=== PATIENT | male | born 1960 | race Caucasian/White ===

== ENCOUNTER 2023-06-14 13:49 | Outpatient (AMB) | payer MEDICARE, MEDICAID, SELFPAY ==
[2023-06-14 13:50] VITALS: BMI 35.1
--- NOTE | 2023-06-14 13:50 | HO.NEPHOV ---
HPI HPI Comments History of Present Illness Details 62 yr old man with HTN and obesity with mild CKD PFSH Social History (Updated 06/14/23 @ 13:52 by Radha Mendoza) Alcohol intake: former Patient Tobacco Use Status: Former Tobacco user Vital Signs 06/14/23 13:50 Height 5 ft 9 in Weight 238 lb BMI 35.1 Physical Exam Vital Signs: BMI result Body Mass Index 35.1 Assessment & Plan Assessment & Plan (1) CKD (chronic kidney disease): Code(s): N18.9 - Chronic kidney disease, unspecified Plan: Mild CKD Creatinine stable Avoid nephrotoxins Telehealth Telehealth Patient Identification confirmed using: Name, : Yes Telehealth method: voice only Patient verbally consented to treatment: Yes Patient verbally consented to billing insurance company: Yes Minutes spent on Phone/Video with Pt.: 16 Coding Level of Care Code Tele New Pt Level 3 (20153) Diagnoses CKD (chronic kidney disease) N18.9 Results Reviewed Results Reviewed: cr 1.2 Nephrology Results: No Data to Display
== END 2023-06-14 15:28 | disposition home or self-care (01) ==
PROVIDERS: Visit Provider Internal Medicine Hypertension Specialist
DX: N18.2 Chronic kidney disease, stage 2 (mild) (principal)
CPT/HCPCS: 99442

== ENCOUNTER → 2023-06-14 13:50 | Outpatient (BNVA) | payer MEDICARE, MEDICAID, SELFPAY | PROVIDERS: Visit Provider Internal Medicine Hypertension Specialist ==

== ENCOUNTER 2023-12-10 15:01 | Outpatient (AMB) | payer MEDICARE, MEDICAID, SELFPAY ==
[2023-12-10 14:58] VITALS: BP 132/72; PULSE 88; O2SAT 97; BMI 36.0
--- NOTE | 2023-12-10 14:58 | HO.NEPHOV_ITS ---
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 Accompanied by: Self / Same As Patient Allergies No Known Allergies Allergy (Verified 12/10/23 15:07) Medication List - Last Reconciled 12/10/23 by Adrian Schneider MD albuterol sulfate 90 mcg/actuation (Ventolin HFA) 2 puffs inhalation Q4-6H PRN allopurinol 100 mg PO DAILY aspirin 81 mg PO DAILY krpjwthfse-kxzuooslhv-tpb-cod [id number] mg caps PO clonazepam 1 mg PO BID PRN epinephrine IM famotidine 20 mg PO BID fluticasone furoate-vilanterol 200-25 mcg/dose (Breo Ellipta) 1 ea inhalation DAILY fluticasone propionate 50 mcg/actuation sprays intranasal hydrochlorothiazide 12.5 mg PO DAILY insulin lispro (Humalog KwikPen (U-100) Insulin) subcut ipratropium-albuterol 0.5 mg-3 mg(2.5 mg base)/3 mL mL inhalation mepolizumab (Nucala) mg subcut metaxalone 800 mg PO TID metformin 1,000 mg PO BID montelukast 10 mg PO DAILY omeprazole 20 mg PO BID ondansetron HCl 4 mg PO Q8H oxycodone 5 mg PO TID PRN prazosin mg PO quetiapine ER 200 mg PO BEDTIME rosuvastatin (Crestor) 40 mg PO DAILY sertraline 100 mg PO BID tamsulosin 0.8 mg PO DAILY tiotropium bromide 1.25 mcg/actuation (Spiriva Respimat) 2 puffs inhalation DAILY valsartan 160 mg PO DAILY zolpidem 10 mg PO BEDTIME PRN HPI Comments Details: 62 yr old man with HTN and obesity with mild CKD PFSH Social History Alcohol intake: former Patient Tobacco Use Status: Former Tobacco user Physical Exam Vital Signs: Last Vital Signs Pulse 88 12/10/23 14:58 BP 132/72 12/10/23 14:58 Pulse Ox 97 12/10/23 14:58 Oxygen Delivery Method Room Air 12/10/23 14:58 BMI result Body Mass Index 36.0 Results Reviewed Nephrology Results: No Data to Display Assessment & Plan Assessment & Plan (1) CKD (chronic kidney disease): Code(s): N18.9 - Chronic kidney disease, unspecified Category: Medical Plan: Mild CKD Creatinine stable Avoid nephrotoxins Orders: Orders Parathyroid Hormone Intact 1 Year N18.9 - Chronic kidney disease, unspecified renal BI 12/10/23 N18.9 - Chronic kidney disease, unspecified Basic Metabolic Panel 1 Year N18.9 - Chronic kidney disease, unspecified Vitamin D 25-OH (D2 and D3) 1 Year N18.9 - Chronic kidney disease, unspecified Complete Blood Count Auto Diff 1 Year N18.9 - Chronic kidney disease, unspecified Coding Level of Care Code Est Pt Level 4 (27018) Diagnoses CKD (chronic kidney disease) N18.9
== END 2023-12-10 15:21 | disposition home or self-care (01) ==
PROVIDERS: Visit Provider Internal Medicine Hypertension Specialist
DX: N18.2 Chronic kidney disease, stage 2 (mild) (principal)
CPT/HCPCS: 99213

== ENCOUNTER → 2023-12-10 15:01 | Outpatient (BNVA) | payer MEDICARE, MEDICAID, SELFPAY | PROVIDERS: Visit Provider Internal Medicine Hypertension Specialist | DX: I12.9 Hypertensive chronic kidney disease with stage 1 through stage 4 chronic kidney disease, or unspecified chronic kidney disease (principal); E66.9 Obesity, unspecified; N18.9 Chronic kidney disease, unspecified; Z68.36 Body mass index [BMI] 36.0-36.9, adult | CPT/HCPCS: 99212 ==

== ENCOUNTER 2024-02-22 14:42 | Outpatient (AMB) | payer MEDICARE, MEDICAID, SELFPAY ==
--- NOTE | 2024-02-22 14:53 | HO.NEPHOV_ITS ---
Vital Signs 02/22/24 15:06 Height 5 ft 9 in Weight 249 lb 8 oz BMI 36.8 BP 210/90 H Blood Pressure Location Lt brachial Position Sitting Pulse 58 Pulse Source Pulse Oximeter Pulse Oximetry (%) 96 Oxygen Delivery Method Room Air Intake Visit Reasons: Dr. Blas request sooner appt. 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 His serum creatinine had gone up to 1.9 on HCTZ. 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 He underwent cardiac catheterization after his serum creatinine improved . 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 His follow up serum creatinine has been stable but his BP control has been quite poor. He is on ARB as well as carvedilol. He denied any chest pain, SOB, edema, PND, orthopnea, NSAID intake. He is unsure about proteinuria. COUNTS INCLUDE 234 BEDS AT [facility] Social History Alcohol intake: former Patient Tobacco Use Status: Former Tobacco user Review of Systems Const All systems reviewed & are unremarkable except as noted in HPI and below Physical Exam Vital Signs: Last Vital Signs Pulse 58 02/22/24 15:06 BP 210/90 H 02/22/24 15:06 Pulse Ox 96 02/22/24 15:06 Oxygen Delivery Method Room Air 02/22/24 15:06 BMI result Body Mass Index 36.8 Const General: comfortable and no acute distress Orientation/consciousness: patient oriented x3 HEENT Head: Yes normocephalic Mouth: Normal oral and palatal mucosa present Eyes EOM: EOMs intact bilaterally Neck Neck: Yes supple Resp Auscultation: clear to auscultation bilaterally Cardio Jugular venous distension: no JVD Rate: regular rate GI Palpation (GI): Soft to palpation Auscultation: normal bowel sounds General: Yes no CVA tenderness Back/Spine/Pelvis Back: no CVA tenderness Skin General skin exam: no rashes or lesions noted Neuro General: patient oriented x3 and moves all extremities Extrem General: Yes no pedal edema Results Reviewed Nephrology Results: Sodium 140 mmol/L (135-145) 02/22/24 Potassium 4.5 mmol/L (3.3-5.1) 02/22/24 Chloride 107 mmol/L (96-108) 02/22/24 Carbon Dioxide 25 mmol/L (22-29) 02/22/24 BUN 14 mg/dL (9-16) 02/22/24 Creatinine 1.26 mg/dL (0.5-1.4) 02/22/24 Urine Creatinine 207.33 mg/dL 02/22/24 Protein/Creatinin Ratio 0.32 (<0.2) H 02/22/24 Assessment & Plan Assessment & Plan (1) CKD (chronic kidney disease) stage 2, GFR 60-89 ml/min: Code(s): N18.2 - Chronic kidney disease, stage 2 (mild) Category: Medical (2) Hypertension: Code(s): I10 - Essential (primary) hypertension Category: Medical Qualifiers: Hypertension type: primary hypertension Qualified Code(s): I10 - Essential (primary) hypertension (3) Diabetic nephropathy: Code(s): E11.21 - Type 2 diabetes mellitus with diabetic nephropathy Category: Medical Qualifiers: Diabetes mellitus type: type 2 Qualified Code(s): E11.21 - Type 2 diabetes mellitus with diabetic nephropathy Plan 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 His BP is uncontrolled. He has diabetic nephropathy. He needs to loose weight and keep his blood sugar at goal. I rechecked blood work after today's visit and found his serum creatinine is close to baseline. I started him on Amlodipine 10 mg daily. I shall maximize his ARB with time and add Jardiance. He avoids NSAID's. His PCP notes and his recent cardiology notes have been requested. Follow up given in a week time Orders: Orders Electrolytes 02/22/24 Roni Blas MD N18.2 - Chronic kidney disease, stage 2 (mild) Blood Urea Nitrogen 02/22/24 Roni Blas MD N18.2 - Chronic kidney disease, stage 2 (mild) Creatinine 02/22/24 Roni Blas MD N18.2 - Chronic kidney disease, stage 2 (mild) Protein Creatinine Ratio, Ur 02/22/24 Roni Blas MD N18.2 - Chronic kidney disease, stage 2 (mild) Medications: New amlodipine 10 mg PO DAILY 30 days 30 tabs 0RF Roni Blas MD On Hold hydrochlorothiazide Hold Comment: Doctor's Order 12.5 mg PO DAILY Meche Shea MA Coding Level of Care Code Est Pt Level 4 (51954) Diagnoses CKD (chronic kidney disease) stage 2, GFR 60-89 ml/min N18.2 Primary hypertension I10 Hypertension type: primary hypertension Diabetic nephropathy associated with type 2 diabetes mellitus E11.21 Diabetes mellitus type: type 2
[2024-02-22 15:06] VITALS: BP 210/90; PULSE 58; O2SAT 96; BMI 36.8
--- OUTSIDE RECORDS SUMMARY | 2024-02-27 10:43 | XMS_ITS | Continuity of Care Document ---
Author Organization [facility] Address [address] [place] [id number]- Care Team Providers Care Television Antenna Installer Name Role Phone Not on Staff, PCP Primary Care Physician Unavail able Encounter [facility] Date(s): 01/18/24 - 02/17/24 [facility] [address] [place] [id number] Encounter Type: Triage Allergies, Adverse Reactions, Alerts Substance Criticality Severity Reaction Reaction Severity Status predniSONE Active Bee Stings swelling trouble breathing Active Immunizations Given and Recorded Vaccine Date Status Refusal Reason SARS-CoV-2 (COVID-19) mRNA-1273 vaccine 1 11/02/20 Recorded SARS-CoV-2 (COVID-19) mRNA-1273 vaccine 08/21/20 R ecorded SARS-CoV-2 (COVID-19) mRNA-1273 vaccine 07/24/20 R ecorded Influenza Virus Vaccine (oldterm) 2 11/02/20 Recor ded Influenza Virus Vaccine (oldterm) 12/31/17 Recorde d influenza virus vaccine, inactivated 3 02/12/19 Gi dominick influenza virus vaccine, inactivated 4 11/07/17 Gi dominick influenza virus vaccine, inactivated 5 05/07/17 Gi dominick influenza virus vaccine, inactivated 6 01/01/15 Gi dominick influenza virus vaccine, inactivated 01/29/13 Give n Zostavax (oldterm) 7 06/08/17 Given Fluvirin (oldterm) 8 12/03/15 Given tetanus/diphtheria/pertussis, acel(Tdap) 02/01/15 Given Pneumovax 23 (oldterm) 9 12/25/13 Recorded Fluzone (oldterm) 10 12/25/13 Recorded Influenza Vaccine (oldterm) 11 01/12/12 Given 1Result Comment: Dewayne received the 3rd booster Moderna Vaccine at [facility] 2Result Comment: Tj in [place] administered the Influenza vaccine 3Result Comment: [facility] [id number] 4Admin Note: Patient states he received flu vaccine from [facility] 5Result Comment: [id number] 6Admin Note: [facility] 7Admin Note: [facility] 8Admin Note: 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 #[id number], DISPENSE AMOUNT DECREASED PER PT REQUEST, 1 capsule By Mouth Daily,PRN:Pain , Moderate,Instr:DISPENSE AMOUNT DECREASED PER PT REQUEST; BANDOLEER PACKER CHECKED,The Maximum Daily Dose is 1 capsule, 175.9, cm, 11/10/20 10:49:00 EDT, Height, 98.5, kg, 11/19/19 13:59:00 EDT, Dry Weight, 1, capsule Start Date: 12/09/20 Status: Ordered Quantity: 18.0 Unit: capsule Repeat number: 1 Albuterol (Eqv-Ventolin HFA) 90 mcg/inh inhalation aerosol 2 puffs, Inhalation, Every 6 hours, j44.9, # 3 each, 3 Refills, Maintenance, 12/12/23 11:53:00 AM EDT, [facility]/pharmacy #[id number], Partial fill upon patient request if the prescription is for a schedule II opioid drug., 2 puffs Inhalation Every 6 hours,Instr:j44.9, 179, cm, 08/14/23 10:37:00 EDT, Height, 108.7, kg, 08/14/23 10:37:00 EDT, Dry Weight Start Date: 12/12/23 Status: Ordered Quantity: 3.0 Unit: each Repeat number: 4 albuterol-ipratropium 3 mg-0.5 mg/3 ml inhalation solution 3 mL, Inhalation, 4 times a day, j45.40, # 360 mL, 3 Refills, Maintenance, 10/23/22 2:16:00 PM EDT, Solution, [facility]/pharmacy #[id number], 3 mL Inhalation 4 times a day,Instr:j45.40, 176, cm, 09/22/22 11:27:00 EDT, Height, 104.5, kg, 07/03/22 13:29:00 EDT, Dry Weight Start Date: 10/23/22 Status: Ordered Quantity: 360.0 Unit: mL Repeat number: 4 allopurinol 100 mg oral tablet 1, tablet, By Mouth, Daily, # 90 tablet, Refills 1, Tot. Refills 1, Maintenance, 10/05/22 5:49:00 PMEDT, Route to Pharmacy Electronically, [facility]/pharmacy #[id number], 176, cm, 09/22/22 11:27:00 EDT, Height, 104.5, kg, 07/03/22 13:29:00 EDT, Dry Weight Start Date: 10/05/22 Status: Ordered Quantity: 90.0 Unit: tablet Repeat number: 2 Aspir 81 = 81 mg, By Mouth, Daily, 0 Refills, Maintenance, 07/17/11 2:28:35 PM EDT Start Date: 07/17/11 Status: Ordered Repeat number: 1 Breo Ellipta 200 mcg-25 mcg/inh inhalation powder 1 puffs, Inhalation, Daily, # 3 each, 0 Refills, Maintenance, 12/12/23 10:50:00 AM EDT, [facility]/pharmacy#[id number], 1 puffs Inhalation Daily, 179, cm, 08/14/23 10:37:00 EDT, Height, 108.7, kg, 08/14/23 10:37:00 EDT, Dry Weight Start Date: 12/12/23 Status: Ordered Quantity: 3.0 Unit: each Repeat number: 1 clonazePAM 1 mg oral tablet 1 tablet = 1 mg, By Mouth, 2 times a day, Fill when it's due, # 180 tablet, 1 Refills, Maintenance,09/19/23 7:56:00 AM EDT, Tablet, [facility]/pharmacy #[id number], 179, cm, 08/14/23 10:37:00 EDT, Height, 108.7, kg, 08/14/23 10:37:00 EDT, Dry Weight Start Date: 09/19/23 Status: Ordered Quantity: 180.0 Unit: tablet Repeat number: 2 Crestor 40 mg oral tablet 1 tablet = 40 mg, By Mouth, Daily, BRAND NAME ONLY, # 90 tablet, 3 Refills, Maintenance, 02/09/20 10:28:00 AM EST, Tablet, [facility] #[id number], 183, cm, 11/20/19 10:39:00 EDT, Height, 98.5, kg, 11/19/19 13:59:00 EDT, Dry Weight Start Date: 02/09/20 Stop Date: 02/03/21 Status: Ordered Quantity: 90.0 Unit: tablet Repeat number: 4 EpiPen 2-Bronson 0.3 mg injectable kit See Instructions, PRN Anaphylactic Reaction, Intramuscular Once may repeat if necessary, # 2 each, 1 Refills, Soft Stop, 04/27/20 2:34:00 PM EST, [facility] #[id number], 183, cm, 11/20/19 10:39:00EDT, Height, 98.5, kg, 11/19/19 13:59:00 EDT, Dry Weight Start Date: 04/27/20 Status: Ordered Quantity: 2.0 Unit: each Repeat number: 2 Flonase 50 mcg/inh nasal spray 1 sprays, Nares, Both, 2 times a day, in each nostril as directed, j45.40, # 3 each, 1 Refills, Maintenance, 05/15/22 10:55:00 AM EST, [place], [facility] #[id number], J45.909, 1 sprays Nares, Both2 times a day,Instr:in each nostril as directed, j45.40, 177, cm, 11/09/21 13:44:00 EDT, Height, 113.5, kg, 09/26/21 15:48:00 EDT, Dry Weight Start Date: 05/15/22 Status: Ordered Quantity: 3.0 Unit: each Repeat number: 2 fluticasone 50 mcg/inh nasal spray 1 sprays = 50 mcg, Nares, Both, 2 times a day, j45.40, # 3 each, 3 Refills, Maintenance, 05/28/23 11:22:00 AM EDT, [place], [facility]/pharmacy #[id number], Partial fill upon patient request if the prescription is for a schedule II opioid drug., 1 sprays Nares, Both 2 times a day,Instr:j45.40, 178, cm, 04/09/23 13:33:00 EST, Height, 109.6, kg, 04/09/23 13:33:00 EST, Dry Weight Start Date: 05/28/23 Status: Ordered Quantity: 3.0 Unit: each Repeat number: 4 Freestyle Lite Test Strips See Instructions, # 360 each, Refills 4, Tot. Refills 4, Maintenance, Use test strips to check blood glucose up to 4x a day, E11.9, 90 Day supply., 07/20/20 11:28:00 AM EDT, Compound, 175.9, cm, 06/16/20 12:57:00 EDT, Height, 98.5, kg, 11/19/19 13:59:00 EDT, Dry Weight Start Date: 07/20/20 Status: Ordered Quantity: 360.0 Unit: each Repeat number: 5 Humalog Kwik Pen 100 units/mL subcutaneous injection See Instructions, INJECT THREE TIMES DAILY WITH MEALS, MAX DAILY DOSE 40 UNITS, E11.9, # 4 each, 3 Refills, Soft Stop, 07/07/20 6:16:00 AM EDT, [facility] #[id number], 4 pens, 175.9, cm, 06/17/2111:57:00 EDT, Height, 98.5, kg, 11/19/19 13:59:00 EDT, Dry Weight Start Date: 07/07/20 Status: Ordered Quantity: 4.0 Unit: each Repeat number: 4 hydroCHLOROthiazide 12.5 mg oral capsule 1 capsule = 12.5 mg, By Mouth, Daily, 0 Refills, Maintenance, 04/09/23 1:09:00 PM EST, Partial fill upon patient request if the prescription is for a schedule II opioid drug. Start Date: 04/09/23 Status: Ordered Repeat number: 1 metaxalone 800 mg oral tablet 1 tablet = 800 mg, By Mouth, Every 8 hours, PRN Muscle Spasm, # 270 tablet, 1 Refills, Soft Stop, 09/01/20 2:32:00 PM EDT, [facility] #[id number], 175.9, cm, 06/16/20 12:57:00 EDT, Height, 98.5, kg, 11/19/19 13:59:00 EDT, Dry Weight Start Date: 09/01/20 Status: Ordered Quantity: 270.0 Unit: tablet Repeat number: 2 metFORMIN 1000 mg oral tablet 1 tablet = 1,000 mg, By Mouth, 2 times a day, # 180 tablet, 2 Refills, Maintenance, 09/24/20 10:29:00AM EDT, Tablet, [facility] #[id number], 175.9, cm, 06/16/20 12:57:00 EDT, Height, 98.5, kg, 11/19/19 13:59:00 EDT, Dry Weight Start Date: 09/24/20 Stop Date: 06/21/21 Status: Ordered Quantity: 180.0 Unit: tablet Repeat number: 3 montelukast 10 mg oral tablet 10 mg, 1, tablet, By Mouth, Daily, j45.40, # 90 tablet, Refills 0, Tot. Refills 0, Maintenance, 12/12/23 10:48:00 AM EDT, Route to Pharmacy Electronically, [facility]/pharmacy #[id number], Partial fill upon patient request if the prescription is for a schedule II opioid drug., 179, cm, 08/14/23 10:37:00 EDT, Height, 108.7, kg, 08/14/23 10:37:00 EDT, Dry Weight Start Date: 12/12/23 Status: Ordered Quantity: 90.0 Unit: tablet Repeat number: 1 Nucala Prefilled Autoinjector 100 mg/mL subcutaneous solution See Instructions, INJECT 100MG SUBCUTANEOUSLY EVERY 28 DAYS, # 1 mL, 11 Refills, Maintenance, 06/21/23 4:20:00 PM EDT, [facility], 178, cm, 04/09/23 13:33:00 EST, Height, 109.6, kg, 04/09/23 13:33:00 EST, Dry Weight Start Date: 06/21/23 Status: Ordered Quantity: 1.0 Unit: mL Repeat number: 1 Nucala Prefilled Autoinjector 100 mg/mL subcutaneous solution See Instructions, INJECT 100MG SUBCUTANEOUSLY EVERY 28 DAYS, # 1 mL, 2 Refills, Maintenance, 01/09/23 3:34:00 PM EDT, [facility], 176, cm, 12/05/22 7:16:00 EDT, Height, 104.5, kg, 07/03/22 13:29:00 EDT, Dry Weight Start Date: 01/09/23 Status: Ordered Quantity: 1.0 Unit: mL Repeat number: 1 NuLYTELY [employer] oral powder for reconstitution See Instructions, By Mouth. as directed before colonoscopy, # 1 each, 0 Refills, Maintenance, 05/04/23 9:37:00 AM EST, [facility]/pharmacy #[id number], Partial fill upon patient request if the prescription is for a schedule II opioid drug., 178, cm, 04/09/23 13:33:00 EST, Height, 109.6, kg, 04/09/23 13:33:00 EST, Dry Weight Start Date: 05/04/23 Status: Ordered Quantity: 1.0 Unit: each Repeat number: 1 omeprazole 20 mg oral enteric coated capsule 1 capsule, By Mouth, 2 times a day, # 180 capsule, 1 Refills, Maintenance, 10/31/22 11:51:00 AM EDT,[id number], 176, cm, 09/22/22 11:27:00 EDT, Height, 104.5, kg, 07/03/22 13:29:00 EDT, Dry Weight Start Date: 10/31/22 Status: Ordered Quantity: 180.0 Unit: capsule Repeat number: 1 ondansetron 4 mg oral tablet, disintegrating 1 tablet = 4 mg, By Mouth, Every 8 hours, 0 Refills, Maintenance, 10/20/20 3:27:00 PM EDT, Partial fill upon patient request if the prescription is for a schedule II opioid drug. Start Date: 10/20/20 Status: Ordered Repeat number: 1 oxyCODONE 5 mg oral capsule 1 capsule = 5 mg, 3 times a day, 0 Refills, Maintenance, 09/22/22 11:32:00 AM EDT, Partial fill upon patient request if the prescription is for a schedule II opioid drug. Start Date: 09/22/22 Status: Ordered Repeat number: 1 Pen [place], 31 G x 8 mm BD Ultra Fine III See Instructions, # 150 each, Refills 11, Tot. Refills 11, Maintenance, Use to inject insulin up to5x per day. E11.9. 30 day supply., 10/30/19 8:31:00 AM EDT, Supply, 175.4, cm, 08/26/19 10:34:00 EDT, Height, 106.8, kg, 05/30/19 9:41:00 EDT, Dry Weight Start Date: 10/30/19 Status: Ordered Quantity: 150.0 Unit: each Repeat number: 12 prazosin 1 mg oral capsule 3 mg, 3, capsule, By Mouth, Daily at bedtime, # 270 capsule, Refills 1, Tot. Refills 1, Maintenance, 10/09/24 10:55:00 AM EDT, Route to Pharmacy Electronically, [facility]/pharmacy #[id number], Partial fill upon patient request if the prescription is for a schedule II opioid drug., 179, cm, 08/14/23 10:37:00 EDT, Height, 108.7, kg, 08/14/23 10:37:00 EDT, Dry Weight Start Date: 10/09/24 Stop Date: 04/07/25 Status: Ordered Quantity: 270.0 Unit: capsule Repeat number: 2 prazosin 1 mg oral capsule 3 mg, 3, capsule, By Mouth, Daily at bedtime, for 90 days, # 270 capsule, Refills 1, Tot. Refills 1, Hard Stop 04/12/24 10:55:00 AM EST, 10/15/23 10:55:00 AM EDT, Route to Pharmacy Electronically, [facility]/pharmacy #[id number], Partial fill upon patient request if the prescription is for a schedule II opioid drug., 176, cm, 12/05/22 7:16:00 EDT, Height, 104.5, kg, 07/03/22 13:29:00 EDT, Dry Weight Start Date: 10/15/23 Stop Date: 04/12/24 Status: Ordered Quantity: 270.0 Unit: capsule Repeat number: 2 prazosin 1 mg oral capsule 3 mg, 3, capsule, By Mouth, Daily at bedtime, for 90 days, # 270 capsule, Refills 1, Tot. Refills 1, Hard Stop 10/09/24 10:55:00 AM EDT, 04/12/24 10:55:00 AM EST, Route to Pharmacy Electronically, [facility]/pharmacy #[id number], Partial fill upon patient request if the prescription is for a schedule II opioid drug., 178, cm, 04/09/23 13:33:00 EST, Height, 109.6, kg, 04/09/23 13:33:00 EST, Dry Weight Start Date: 04/12/24 Stop Date: 10/09/24 Status: Ordered Quantity: 270.0 Unit: capsule Repeat number: 2 QUEtiapine 200 mg oral tablet, extended release 200 mg, 1, tablet, By Mouth, Daily, # 90 tablet, Refills 1, Tot. Refills 1, Maintenance, 08/11/24 4:47:00 PM EDT, Route to Pharmacy Electronically, [facility]/pharmacy #[id number], 179, cm, 08/14/23 10:37:00 EDT, Height, 108.7, kg, 08/14/23 10:37:00 EDT, Dry Weight Start Date: 08/11/24 Stop Date: 02/07/25 Status: Ordered Quantity: 90.0 Unit: tablet Repeat number: 2 QUEtiapine 200 mg oral tablet, extended release 200 mg, 1, tablet, By Mouth, Daily, for 90 days, # 90 tablet, Refills 1, Tot. Refills 1, Hard Stop 08/11/24 4:47:00 PM EDT, 02/13/24 4:47:00 PM EST, Route to Pharmacy Electronically, [facility]/pharmacy #[id number], 178, cm, 04/09/23 13:33:00 EST, Height, 109.6, kg, 04/09/23 13:33:00 EST, Dry Weight Start Date: 02/13/24 Stop Date: 08/11/24 Status: Ordered Quantity: 90.0 Unit: tablet Repeat number: 2 sertraline 100 mg oral tablet 2 tablet = 200 mg, By Mouth, Daily, # 180 tablet, 1 Refills, Maintenance, 08/11/24 4:47:00 PM EDT, [facility]/pharmacy #[id number], 179, cm, 08/14/23 10:37:00 EDT, Height, 108.7, kg, 08/14/23 10:37:00 EDT, Dry Weight Start Date: 08/11/24 Stop Date: 02/07/25 Status: Ordered Quantity: 180.0 Unit: tablet Repeat number: 2 sertraline 100 mg oral tablet 2 tablet = 200 mg, By Mouth, Daily, for 90 days, # 180 tablet, 1 Refills, Hard Stop 08/11/24 4:47:00PM EDT, 02/13/24 4:47:00 PM EST, [facility]/pharmacy #[id number], 178, cm, 04/09/23 13:33:00 EST, Height, 109.6,kg, 04/09/23 13:33:00 EST, Dry Weight Start Date: 02/13/24 Stop Date: 08/11/24 Status: Ordered Quantity: 180.0 Unit: tablet Repeat number: 2 Spiriva Respimat 1.25 mcg/inh inhalation aerosol See Instructions, INHALE 2 PUFFS BY MOUTH DAILY, j45.40, # 3 each, 0 Refills, Soft Stop, 12/12/23 10:49:00 AM EDT, [facility]/pharmacy #[id number], 179, cm, 08/14/23 10:37:00 EDT, Height, 108.7, kg, 08/14/23 10:37:00 EDT, Dry Weight Start Date: 12/12/23 Status: Ordered Quantity: 3.0 Unit: each Repeat number: 1 tamsulosin 0.4 mg oral capsule 1, capsule, By Mouth, 2 times a day, # 180 capsule, Refills 3, Tot. Refills 3, Maintenance, 10/22/23 10:22:00 AM EDT, Route to Pharmacy Electronically, [facility]/pharmacy #[id number], 179, cm, 08/14/23 10:37:00 EDT, Height, 108.7, kg, 08/14/23 10:37:00 EDT, Dry Weight Start Date: 10/22/23 Status: Ordered Quantity: 180.0 Unit: capsule Repeat number: 4 valsartan 160 mg oral tablet 160 mg, 1, tablet, By Mouth, Daily, # 30 tablet, Refills 0, Maintenance, 05/05/21 8:02:00 AM EST, Partial fill upon patient request if the prescription is for a schedule II opioid drug. Start Date: 05/05/21 Status: Ordered Quantity: 30.0 Unit: tablet Repeat number: 1 Ventolin HFA 108 mcg/inh inhalation aerosol with adapter 2 puffs, Inhalation, 4 times a day, PRN for wheezing, j44.9, # 3 each, 0 Refills, Maintenance, 12/12/23 10:48:00 AM EDT, Aerosol, [facility] #[id number], Partial fill upon patient request if the prescription is for a schedule II opioid drug., 179, cm, 08/14/23 10:37:00 EDT, Height, 108.7, kg, 08/14/23 10 :37:00 EDT, Dry Weight Start Date: 12/12/23 Status: Ordered Quantity: 3.0 Unit: each Repeat number: 1 zolpidem 10 mg oral tablet 1 tablet = 10 mg, By Mouth, Daily at bedtime, Fill when it's due, # 90 tablet, 1 Refills, Maintenance, 09/19/23 7:58:00 AM EDT, [facility] #[id number], 179, cm, 08/14/23 10:37:00 EDT, Height, 108.7, kg, 08/14/23 10:37:00 EDT, Dry Weight Start Date: 09/19/23 Status: Ordered Quantity: 90.0 Unit: tablet Repeat number: 2 Problem List Condition Confirmation Course Effective Dates Status Health Status Informant Anemia Confirmed Active Anxiety Confirmed Active Anxiety and depression Confirmed Active Articular gout 1 Confirmed Active Asthma Confirmed Active Back pain Confirmed Active Carotid artery stenosis Confirmed Active Chondromalacia of patella, right 2 Confirmed 04/18/10 Active Chronic kidney disease, stage 3 Confirmed Active Low vitamin D level Confirmed Active Esophageal reflux (GERD) Confirmed Active Essential hypertension Confirmed Active Hypercholesterolemia Confirmed Active Major depressive disorder Confirmed Active Migraine Confirmed Active 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 Obesity Confirmed Active LUISA on CPAP Confirmed 01/15/12 Active Pad 3 Confirmed Active PTSD - Post-traumatic stress disorder 4 Confirmed Active Severe obesity (BMI 35.0-39.9) with comorbidity Confirmed Active Type 2 diabetes with nephropathy Confirmed Active 1L ankle 2MRI confirmed Abnormal ERIC to L but normal flows by Doppler on both LE 4[facility] at the [facility], [facility] Social History Social History Type Response Smoking Status Former smoker; Tobac co user in household: No entered on: 08/29/16 Sex Sex Representation Male (finding) Patient Care team information Care Team Personnel Name: Jennie SILVERMAN, Adrian Luevano Position: [facility] Renal MD Member Role: Lifetime Consulting Physician Address: [address] [place] [address] [address] [facility] [place] [address]- [place] [employer]: Name: Maria Dolores Luo RN Position: [facility] RN Member Role: Primary Care Nurse Name: Dewayne Kisney MD Position: [facility] Cardiology MD Member Role: Lifetime Consulting Physician Address: [address] [place] [address]- [place] [employer]: Name: Jyothi Rangel RN Position: [facility] RN Member Role: Primary Care Nurse Name: Ed RN, Elba Hutchins Position: [facility] Onco RN Member Role: Primary Care Nurse Name: June Manzano MA Position: [facility] Office Staff Member Role: Primary Care Nurse Name: Not on Staff, PCP Position: [facility] Physician (General Medicine) Member Role: PCP Name: Shell Gray RN Position: [facility] AMB Nurse Member Role: Primary Care Nurse Name: Bharathi Villa MD Position: [facility] Renal MD Member Role: Lifetime Consulting Physician Address: [address] [facility], [place] [address]- [place] [employer]: Name: Wesly Hernandez MD Position: Reference Physician Member Role: Lifetime Consulting Physician Address: [address] [place] [address]- [place] [employer]: Care Team Related Persons Name: HITESH SNIDER Insurance Providers Guarantor name: DEWAYNE SNIDER Health Plan Information #: 1 Payer: MEDICARE PART B OUTPT Member Number: NA Policy Number: NA Group Number: NA Health Plan Information #: 2 Payer: [place] Member Number: NA Policy Number: NA Group Number: NA
--- OUTSIDE RECORDS SUMMARY | 2024-02-27 10:44 | XMS_ITS | Continuity of Care Document ---
Author Organization [facility] Address [address] [place] [address]- Care Team Providers Care Marketing/Sales Person Name Role Phone Not on Staff, PCP Primary Care Physician Unavail able Encounter [facility] Date(s): 01/18/24 - 02/17/24 [facility] [address] [place] [id number]- Encounter Type: Triage Allergies, Adverse Reactions, Alerts [...] received the 3rd booster Moderna Vaccine at [facility] 2Result Comment: [facility] in [place] administered the Influenza vaccine 3Result Comment: 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, # 18 capsule, 0 Refills, Soft Stop, 12/09/20 4:00:00 PM EDT, [facility] #[id number], DISPENSE AMOUNT DECREASED PER PT REQUEST, 1 capsule By Mouth Daily,PRN:Pain , Moderate,Instr:DISPENSE AMOUNT DECREASED PER PT REQUEST; 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,The Maximum Daily Dose is 1 capsule, 175.9, cm, 11/10/20 10:49:00 EDT, Height, 98.5, kg, 11/19/19 13:59:00 EDT, Dry Weight, 1, capsule Start Date: 12/09/20 Status: Ordered Quantity: 18.0 Unit: capsule Repeat number: 1 Albuterol (Eqv-Ventolin HFA) 90 mcg/inh inhalation aerosol 2 puffs, Inhalation, Every 6 hours, j44.9, # 3 each, 3 Refills, Maintenance, 12/12/23 11:53:00 AM EDT, [facility]/pharmacy #[id number], Partial fill upon patient request if the [...] Refills, Maintenance, 10/23/22 2:16:00 PM EDT, Solution, [facility]/pharmacy #[id number], 3 mL Inhalation 4 times a day,Instr:j45.40, 176, cm, 09/22/22 11:27:00 EDT, Height, 104.5, kg, 07/03/22 13:29:00 EDT, Dry Weight Start Date: 10/23/22 Status: Ordered Quantity: 360.0 Unit: mL Repeat number: 4 allopurinol 100 mg oral tablet 1, tablet, By Mouth, Daily, # 90 tablet, Refills 1, Tot. Refills 1, Maintenance, 10/05/22 5:49:00 PMEDT, Route to Pharmacy Electronically, [facility]/pharmacy #[id number], 176, cm, 09/22/22 11:27:00 [...] 0 Refills, Maintenance, 12/12/23 10:50:00 AM EDT, [facility]/pharmacy#0315, 1 puffs Inhalation Daily, 179, cm, 08/14/23 10:37:00 EDT, Height, 108.7, kg, 08/14/23 10:37:00 EDT, Dry Weight Start Date: 12/12/23 Status: Ordered Quantity: 3.0 Unit: each Repeat number: 1 clonazePAM 1 mg oral tablet 1 tablet = 1 mg, By Mouth, 2 times a day, Fill when it's due, # 180 tablet, 1 Refills, Maintenance,09/19/23 7:56:00 AM EDT, Tablet, [facility]/pharmacy #[id number], 179, cm, 08/14/23 10:37:00 EDT, Height, 108.7, kg, 08/14/23 10:37:00 EDT, Dry Weight Start Date: 09/19/23 Status: Ordered Quantity: 180.0 Unit: tablet Repeat number: 2 Crestor 40 mg oral tablet 1 tablet = 40 mg, By Mouth, Daily, BRAND NAME ONLY, # 90 tablet, 3 Refills, Maintenance, 02/09/20 10:28:00 AM EST, Tablet, [facility] #[id number], 183, cm, 11/20/19 10:39:00 EDT, Height, 98.5, kg, 11/19/19 13:59:00 EDT, Dry Weight Start Date: 02/09/20 Stop Date: 02/03/21 Status: Ordered Quantity: 90.0 Unit: tablet Repeat number: 4 EpiPen 2-Bronson 0.3 mg injectable kit See Instructions, PRN Anaphylactic Reaction, Intramuscular Once may repeat if necessary, # 2 each, 1 Refills, Soft Stop, 04/27/20 2:34:00 PM EST, [facility] #[id number], 183, cm, 11/20/19 10:39:00EDT, Height, 98.5, kg, 11/19/19 13:59:00 EDT, Dry Weight Start Date: 04/27/20 Status: Ordered Quantity: 2.0 Unit: each Repeat number: 2 Flonase 50 mcg/inh nasal spray 1 sprays, Nares, Both, 2 times a day, in each nostril as directed, j45.40, # 3 each, 1 Refills, Maintenance, 05/15/22 10:55:00 AM EST, [place], [facility] #[id number], J45.909, 1 sprays Nares, Both2 times a [...] 3 Refills, Maintenance, 05/28/23 11:22:00 AM EDT, [place], [facility]/pharmacy #0315, Partial fill upon patient [...] Refills, Soft Stop, 07/07/20 6:16:00 AM EDT, [facility] #[id number], 4 pens, 175.9, cm, 06/17/2111:57:00 EDT, Height, [...] Refills, Soft Stop, 09/01/20 2:32:00 PM EDT, [facility] #[id number], 175.9, cm, 06/16/20 12:57:00 EDT, Height, 98.5, kg, 11/19/19 13:59:00 EDT, Dry Weight Start Date: 09/01/20 Status: Ordered Quantity: 270.0 Unit: tablet Repeat number: 2 metFORMIN 1000 mg oral tablet 1 tablet = 1,000 mg, By Mouth, 2 times a day, # 180 tablet, 2 Refills, Maintenance, 09/24/20 10:29:00AM EDT, Tablet, [facility] #[id number], 175.9, cm, 06/16/20 12:57:00 EDT, Height, 98.5, kg, 11/19/19 13:59:00 EDT, Dry Weight Start Date: 09/24/20 Stop Date: 06/21/21 Status: Ordered Quantity: 180.0 Unit: tablet Repeat number: 3 montelukast 10 mg oral tablet 10 mg, 1, tablet, By Mouth, Daily, j45.40, # 90 tablet, Refills 0, Tot. Refills 0, Maintenance, 12/12/23 10:48:00 AM EDT, Route to Pharmacy Electronically, [facility]/pharmacy #[id number], Partial fill upon patient request if the [...] 11 Refills, Maintenance, 06/21/23 4:20:00 PM EDT, [facility], 178, cm, 04/09/23 13:33:00 EST, Height, 109.6, kg, 04/09/23 13:33:00 EST, Dry Weight Start Date: 06/21/23 Status: Ordered Quantity: 1.0 Unit: mL Repeat number: 1 Nucala Prefilled Autoinjector 100 mg/mL subcutaneous solution See Instructions, INJECT 100MG SUBCUTANEOUSLY EVERY 28 DAYS, # 1 mL, 2 Refills, Maintenance, 01/09/23 3:34:00 PM EDT, [facility], 176, cm, 12/05/22 7:16:00 EDT, Height, 104.5, kg, 07/03/22 13:29:00 EDT, Dry Weight Start Date: 01/09/23 Status: Ordered Quantity: 1.0 Unit: mL Repeat number: 1 NuLYTELY [place] oral powder for reconstitution See Instructions, By Mouth. as directed before colonoscopy, # 1 each, 0 Refills, Maintenance, 05/04/23 9:37:00 AM EST, [facility]/pharmacy #[id number], Partial fill upon patient [...] capsule, 1 Refills, Maintenance, 10/31/22 11:51:00 AM EDT,[id number], 176, cm, 09/22/22 11:27:00 EDT, Height, 104.5, [...] 09/22/22 Status: Ordered Repeat number: 1 Pen [place], 31 G x 8 mm BD Ultra [...] 10:55:00 AM EDT, Route to Pharmacy Electronically, [facility]/pharmacy #[id number], Partial fill upon patient [...] 10:55:00 AM EDT, Route to Pharmacy Electronically, [facility]/pharmacy #0315, Partial fill upon patient [...] 10:55:00 AM EST, Route to Pharmacy Electronically, [facility]/pharmacy #0315, Partial fill upon patient [...] 4:47:00 PM EDT, Route to Pharmacy Electronically, [facility]/pharmacy #0315, 179, cm, 08/14/23 10:37:00 [...] 4:47:00 PM EST, Route to Pharmacy Electronically, [facility]/pharmacy #[id number], 178, cm, 04/09/23 13:33:00 EST, Height, 109.6, kg, 04/09/23 13:33:00 EST, Dry Weight Start Date: 02/13/24 Stop Date: 08/11/24 Status: Ordered Quantity: 90.0 Unit: tablet Repeat number: 2 sertraline 100 mg oral tablet 2 tablet = 200 mg, By Mouth, Daily, # 180 tablet, 1 Refills, Maintenance, 08/11/24 4:47:00 PM EDT, [facility]/pharmacy #0315, 179, cm, 08/14/23 10:37:00 EDT, Height, 108.7, kg, 08/14/23 10:37:00 EDT, Dry Weight Start Date: 08/11/24 Stop Date: 02/07/25 Status: Ordered Quantity: 180.0 Unit: tablet Repeat number: 2 sertraline 100 mg oral tablet 2 tablet = 200 mg, By Mouth, Daily, for 90 days, # 180 tablet, 1 Refills, Hard Stop 08/11/24 4:47:00PM EDT, 02/13/24 4:47:00 PM EST, [facility]/pharmacy #[id number], 178, cm, 04/09/23 13:33:00 EST, Height, 109.6,kg, 04/09/23 13:33:00 EST, Dry Weight Start Date: 02/13/24 Stop Date: 08/11/24 Status: Ordered Quantity: 180.0 Unit: tablet Repeat number: 2 Spiriva Respimat 1.25 mcg/inh inhalation aerosol See Instructions, INHALE 2 PUFFS BY MOUTH DAILY, j45.40, # 3 each, 0 Refills, Soft Stop, 12/12/23 10:49:00 AM EDT, [facility]/pharmacy #[id number], 179, cm, 08/14/23 10:37:00 EDT, Height, 108.7, kg, 08/14/23 10:37:00 EDT, Dry Weight Start Date: 12/12/23 Status: Ordered Quantity: 3.0 Unit: each Repeat number: 1 tamsulosin 0.4 mg oral capsule 1, capsule, By Mouth, 2 times a day, # 180 capsule, Refills 3, Tot. Refills 3, Maintenance, 10/22/23 10:22:00 AM EDT, Route to Pharmacy Electronically, [facility]/pharmacy #[id number], 179, cm, 08/14/23 10:37:00 [...] Doppler on both LE 4Followed at the [facility], [facility] Social History Social History Type Response Smoking Status Former smoker; Tobac co user in household: No entered on: 08/29/16 Sex Sex Representation Male (finding) Patient Care team information Care Team Personnel Name: Jennie SILVERMAN, Adrian Luevano Position: [facility] Renal MD Member Role: Lifetime Consulting Physician Address: [address] [place] [address]- [place] Tele[employer]: Name: Maria Dolores Luo RN Position: [facility] RN Member Role: Primary Care Nurse Name: Dewayne Kinsey MD Position: [facility] Cardiology MD Member Role: Lifetime Consulting Physician Address: [address] [place] [address]- [place] Tele[place]: Name: Jyothi Rangel RN Position: [facility] RN Member Role: Primary Care Nurse Name: Ed LEE, Elba Hutchins Position: [facility] Onco RN Member Role: Primary Care Nurse Name: June Manzano MA Position: [facility] Staff Member Role: Primary Care Nurse Name: Not on Staff, PCP Position: [facility] Physician (General Medicine) Member Role: PCP Name: Shell Gray RN Position: [facility] AMB Nurse Member Role: Primary Care Nurse Name: Bharathi Villa MD Position: [facility] Renal MD Member Role: Lifetime Consulting Physician Address: [address] [facility] [place] [address]- [place] Tele[employer]: Name: Wesly Hernandez MD Position: Reference Physician Member Role: Lifetime Consulting Physician Address: [address] [place] [address]- [place] [employer]: Care Team Related Persons Name: HITESH SNIDER Insurance Providers Guarantor name: DEWAYNE SNIDER Health Plan Information #: 1 Payer: MEDICARE PART B OUTPT Member Number: NA Policy Number: NA Group Number: NA Health Plan Information #: 2 Payer: [place] Member Number: NA Policy Number: NA Group Number: NA
--- OUTSIDE RECORDS SUMMARY | 2024-02-27 10:44 | XMS_ITS | Continuity of Care Document ---
Author Organization [facility] Address [address] [place] [phone]- Care Team Providers Care Physical Therapy Instructor Name Role Phone Not on Staff, PCP Primary Care Physician Unavail able Encounter [facility] Date(s): 10/11/23 - 02/08/24 [facility] [address] [place] [id number] Attending Physician: Gerry Rangel MD Admitting Physician: Gerry Rangel MD Referring Physician: Not on Staff, Referring MD Encounter Type: Pre-OutPatient One Time Allergies, Adverse Reactions, Alerts Substance Criticality Severity [...] received the 3rd booster Moderna Vaccine at [facility] 2Result Comment: [facility] in [place] administered the Influenza vaccine 3Result Comment: [facility] [id number] 4Admin Note: Patient states he received flu vaccine from [facility] 5Result Comment: [id number] 6Admin Note: [facility] 7Admin Note: [facility] 8Admin Note: [facility] 9Location History: [facility] 10Location History: [facility] 11Admin Note: [facility] Medications acetaminophen/butalbital/caffeine/codeine 300 mg-50 mg-40 mg-30 mg oral capsule 1 capsule, By Mouth, Daily, PRN Pain , Moderate, DISPENSE 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 PER PT 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, # 18 capsule, 0 Refills, Soft Stop, 12/09/20 4:00:00 PM EDT, [facility] #[id number], DISPENSE AMOUNT DECREASED PER PT REQUEST, 1 capsule By Mouth Daily,PRN:Pain , Moderate,Instr:DISPENSE AMOUNT DECREASED PER PT REQUEST; 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,The Maximum Daily Dose is 1 capsule, 175.9, cm, 11/10/20 10:49:00 EDT, Height, 98.5, kg, 11/19/19 13:59:00 EDT, Dry Weight, 1, capsule Start Date: 12/09/20 Status: Ordered Quantity: 18.0 Unit: capsule Repeat number: 1 Albuterol (Eqv-Ventolin HFA) 90 mcg/inh inhalation aerosol 2 puffs, Inhalation, Every 6 hours, j44.9, # 3 each, 3 Refills, Maintenance, 12/12/23 11:53:00 AM EDT, [facility]/pharmacy #[id number], Partial fill upon patient request if the [...] Refills, Maintenance, 10/23/22 2:16:00 PM EDT, Solution, [facility]/pharmacy #0315, 3 mL Inhalation 4 times a day,Instr:j45.40, 176, cm, 09/22/22 11:27:00 EDT, Height, 104.5, kg, 07/03/22 13:29:00 EDT, Dry Weight Start Date: 10/23/22 Status: Ordered Quantity: 360.0 Unit: mL Repeat number: 4 allopurinol 100 mg oral tablet 1, tablet, By Mouth, Daily, # 90 tablet, Refills 1, Tot. Refills 1, Maintenance, 10/05/22 5:49:00 PMEDT, Route to Pharmacy Electronically, [facility]/pharmacy #[id number], 176, cm, 09/22/22 11:27:00 EDT, Height, [...] 0 Refills, Maintenance, 12/12/23 10:50:00 AM EDT, [facility]acy#0315, 1 puffs Inhalation Daily, 179, cm, 08/14/23 10:37:00 EDT, Height, 108.7, kg, 08/14/23 10:37:00 EDT, Dry Weight Start Date: 12/12/23 Status: Ordered Quantity: 3.0 Unit: each Repeat number: 1 clonazePAM 1 mg oral tablet 1 tablet = 1 mg, By Mouth, 2 times a day, Fill when it's due, # 180 tablet, 1 Refills, Maintenance,09/19/23 7:56:00 AM EDT, Tablet, [facility]/pharmacy #0315, 179, cm, 08/14/23 10:37:00 EDT, Height, 108.7, kg, 08/14/23 10:37:00 EDT, Dry Weight Start Date: 09/19/23 Status: Ordered Quantity: 180.0 Unit: tablet Repeat number: 2 Crestor 40 mg oral tablet 1 tablet = 40 mg, By Mouth, Daily, BRAND NAME ONLY, # 90 tablet, 3 Refills, Maintenance, 02/09/20 10:28:00 AM EST, Tablet, [facility] #87066, 183, cm, 11/20/19 10:39:00 EDT, Height, 98.5, kg, 11/19/19 13:59:00 EDT, Dry Weight Start Date: 02/09/20 Stop Date: 02/03/21 Status: Ordered Quantity: 90.0 Unit: tablet Repeat number: 4 EpiPen 2-Bronson 0.3 mg injectable kit See Instructions, PRN Anaphylactic Reaction, Intramuscular Once may repeat if necessary, # 2 each, 1 Refills, Soft Stop, 04/27/20 2:34:00 PM EST, [facility] #95003, 183, cm, 11/20/19 10:39:00EDT, Height, 98.5, kg, 11/19/19 13:59:00 EDT, Dry Weight Start Date: 04/27/20 Status: Ordered Quantity: 2.0 Unit: each Repeat number: 2 Flonase 50 mcg/inh nasal spray 1 sprays, Nares, Both, 2 times a day, in each nostril as directed, j45.40, # 3 each, 1 Refills, Maintenance, 05/15/22 10:55:00 AM EST, [place], [facility] #02128, J45.909, 1 sprays Nares, Both2 times a [...] 3 Refills, Maintenance, 05/28/23 11:22:00 AM EDT, [place], [facility]/pharmacy #0315, Partial fill upon patient request if [...] Refills, Soft Stop, 07/07/20 6:16:00 AM EDT, [facility] #[id number], 4 pens, 175.9, cm, 06/17/2111:57:00 EDT, Height, [...] Refills, Soft Stop, 09/01/20 2:32:00 PM EDT, [facility] #[id number], 175.9, cm, 06/16/20 12:57:00 EDT, Height, 98.5, kg, 11/19/19 13:59:00 EDT, Dry Weight Start Date: 09/01/20 Status: Ordered Quantity: 270.0 Unit: tablet Repeat number: 2 metFORMIN 1000 mg oral tablet 1 tablet = 1,000 mg, By Mouth, 2 times a day, # 180 tablet, 2 Refills, Maintenance, 09/24/20 10:29:00AM EDT, Tablet, [facility] #[id number], 175.9, cm, 06/16/20 12:57:00 EDT, Height, 98.5, kg, 11/19/19 13:59:00 EDT, Dry Weight Start Date: 09/24/20 Stop Date: 06/21/21 Status: Ordered Quantity: 180.0 Unit: tablet Repeat number: 3 montelukast 10 mg oral tablet 10 mg, 1, tablet, By Mouth, Daily, j45.40, # 90 tablet, Refills 0, Tot. Refills 0, Maintenance, 12/12/23 10:48:00 AM EDT, Route to Pharmacy Electronically, [facility]/pharmacy #[id number], Partial fill upon patient request if the [...] 11 Refills, Maintenance, 06/21/23 4:20:00 PM EDT, [facility], 178, cm, 04/09/23 13:33:00 EST, Height, 109.6, kg, 04/09/23 13:33:00 EST, Dry Weight Start Date: 06/21/23 Status: Ordered Quantity: 1.0 Unit: mL Repeat number: 1 Nucala Prefilled Autoinjector 100 mg/mL subcutaneous solution See Instructions, INJECT 100MG SUBCUTANEOUSLY EVERY 28 DAYS, # 1 mL, 2 Refills, Maintenance, 01/09/23 3:34:00 PM EDT, [facility], 176, cm, 12/05/22 7:16:00 EDT, Height, 104.5, kg, 07/03/22 13:29:00 EDT, Dry Weight Start Date: 01/09/23 Status: Ordered Quantity: 1.0 Unit: mL Repeat number: 1 NuLYTELY Lemon [place] oral powder for reconstitution See Instructions, By Mouth. as directed before colonoscopy, # 1 each, 0 Refills, Maintenance, 05/04/23 9:37:00 AM EST, [facility]/pharmacy #0315, Partial fill upon patient request if [...] capsule, 1 Refills, Maintenance, 10/31/22 11:51:00 AM EDT,[facility] 90734, 176, cm, 09/22/22 11:27:00 EDT, Height, 104.5, [...] 09/22/22 Status: Ordered Repeat number: 1 Pen [place], 31 G x 8 mm BD Ultra [...] 10:55:00 AM EDT, Route to Pharmacy Electronically, [facility]/pharmacy #0315, Partial fill upon patient request if [...] 10:55:00 AM EDT, Route to Pharmacy Electronically, [facility]/pharmacy #0315, Partial fill upon patient request if [...] 10:55:00 AM EST, [facility]ically[id number], Partial fill upon patient request if [...] 4:47:00 PM EDT, Route to Pharmacy Electronically, [facility], 179, cm, 08/14/23 10:37:00 EDT, Height, [...] 4:47:00 PM EST, Route to Pharmacy Electronically, [facility]/pharmacy #0315, 178, cm, 04/09/23 13:33:00 EST, Height, 109.6, kg, 04/09/23 13:33:00 EST, Dry Weight Start Date: 02/13/24 Stop Date: 08/11/24 Status: Ordered Quantity: 90.0 Unit: tablet Repeat number: 2 sertraline 100 mg oral tablet 2 tablet = 200 mg, By Mouth, Daily, # 180 tablet, 1 Refills, Maintenance, 08/11/24 4:47:00 PM EDT, [facility]/pharmacy #0315, 179, cm, 08/14/23 10:37:00 EDT, Height, 108.7, kg, 08/14/23 10:37:00 EDT, Dry Weight Start Date: 08/11/24 Stop Date: 02/07/25 Status: Ordered Quantity: 180.0 Unit: tablet Repeat number: 2 sertraline 100 mg oral tablet 2 tablet = 200 mg, By Mouth, Daily, for 90 days, # 180 tablet, 1 Refills, Hard Stop 08/11/24 4:47:00PM EDT, 02/13/24 4:47:00 PM EST, [facility]/pharmacy #0315, 178, cm, 04/09/23 13:33:00 EST, Height, 109.6,kg, 04/09/23 13:33:00 EST, Dry Weight Start Date: 02/13/24 Stop Date: 08/11/24 Status: Ordered Quantity: 180.0 Unit: tablet Repeat number: 2 Spiriva Respimat 1.25 mcg/inh inhalation aerosol See Instructions, INHALE 2 PUFFS BY MOUTH DAILY, j45.40, # 3 each, 0 Refills, Soft Stop, 12/12/23 10:49:00 AM EDT, [facility]/pharmacy #0315, 179, cm, 08/14/23 10:37:00 EDT, Height, 108.7, kg, 08/14/23 10:37:00 EDT, Dry Weight Start Date: 12/12/23 Status: Ordered Quantity: 3.0 Unit: each Repeat number: 1 tamsulosin 0.4 mg oral capsule 1, capsule, By Mouth, 2 times a day, # 180 capsule, Refills 3, Tot. Refills 3, Maintenance, 10/22/23 10:22:00 AM EDT, Route to Pharmacy Electronically, [facility]/pharmacy #0315, 179, cm, 08/14/23 10:37:00 EDT, Height, [...] nephropathy Confirmed Active 1L ankle 2MRI confirmed 34/12 Abnormal ERIC to L but normal flows by Doppler on both LE 4Followed at the [facility], [facility] Social History Social History Type Response Smoking Status Former smoker; Tobac co user in household: No entered on: 08/29/16 Sex Sex Representation Male (finding) Patient Care team information Care Team Personnel Name: Jennie SILVERMAN, Adrian Luevano Position: [facility] Renal MD Member Role: Lifetime Consulting Physician Address: [address] [place] [address] [address] [place] [address]- [place] Tele[place]: Name: Maria Dolores Luo RN Position: S RN Member Role: Primary Care Nurse Name: Dewayne Kinsey MD Position: [facility] Cardiology MD Member Role: Lifetime Consulting Physician Address: [address] [place] [address]- [place] Tele[employer]: Name: Jyothi Rangel RN Position: [facility] RN Member Role: Primary Care Nurse Name: Ed LEE, Elba Hutchins Position: [facility] Onco RN Member Role: Primary Care Nurse Name: June Manzano [place] Position: [facility] Office Staff Member Role: Primary Care Nurse Name: Not on Staff, PCP Position: [facility] Physician (General Medicine) Member Role: PCP Name: Shell Gray RN Position: [facility] AMB Nurse Member Role: Primary Care Nurse Name: Bharathi Villa MD Position: [facility] Renal MD Member Role: Lifetime Consulting Physician Address: [address] [facility] [place] [address]- [place] Tele[employer]: Name: Wesly Hernandez MD Position: Reference Physician Member Role: Lifetime Consulting Physician Address: [address] [place] [address]- [place] [employer]: Care Team Related Persons Name: HITESH SNIDER Insurance Providers Guarantor name: DEWAYNE SNIDER Health Plan Information #: 2 [facility] Member Number: [id number] Policy Number: NA Group Number: NA Health Plan Information #: 1 Payer: MEDICARE PART B OUTPT Member Number: [id number] Policy Number: NA Group Number: NA
--- OUTSIDE RECORDS SUMMARY | 2024-02-27 10:44 | XMS_ITS | Continuity of Care Document ---
Author Organization [facility] Address [address] [place] [phone]- Care Team Providers Care Cupola Liner Helper Name Role Phone Not on Staff, PCP Primary Care Physician Unavail able [place] [facility] [place] 02[place]/24 [facility] [address] [place] [address]- Encounter Type: Triage Allergies, Adverse Reactions, Alerts [...] received the 3rd booster Moderna Vaccine at [facility] 2Result Comment: [facility] in [place] administered the Influenza vaccine 3Result Comment: [facility] [id number] 4Admin Note: Patient states he received flu vaccine from [facility] 5Result Comment: [id number] 6Admin Note: [facility] 7Admin Note: [facility] 8Admin Note: [facility]Location History: [facility] 10Location [facility] 11Admin Note: [facility] Medications acetaminophen/butalbital/caffeine/codeine 300 mg-50 mg-40 mg-30 mg oral capsule 1 capsule, By Mouth, Daily, PRN Pain , Moderate, DISPENSE AMOUNT DECREASED PER PT 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, # 18 capsule, 0 Refills, Soft Stop, 12/09/20 4:00:00 PM EDT, [facility][id number], DISPENSE AMOUNT DECREASED PER PT REQUEST, 1 capsule By Mouth Daily,PRN:Pain , Moderate,Instr:DISPENSE AMOUNT DECREASED PER PT REQUEST; 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,The Maximum Daily Dose is 1 capsule, 175.9, cm, 11/10/20 10:49:00 EDT, Height, 98.5, kg, 11/19/19 13:59:00 EDT, Dry Weight, 1, capsule Start Date: 12/09/20 Status: Ordered Quantity: 18.0 Unit: capsule Repeat number: 1 Albuterol (Eqv-Ventolin HFA) 90 mcg/inh inhalation aerosol 2 puffs, Inhalation, Every 6 hours, j44.9, # 3 each, 3 Refills, Maintenance, 12/12/23 11:53:00 AM EDT, [facility]/pharmacy #[id number], Partial fill upon patient request if the [...] Refills, Maintenance, 10/23/22 2:16:00 PM EDT, Solution, [facility]/pharmacy #[id number], 3 mL Inhalation 4 times a day,Instr:j45.40, 176, cm, 09/22/22 11:27:00 EDT, Height, 104.5, kg, 07/03/22 13:29:00 EDT, Dry Weight Start Date: 10/23/22 Status: Ordered Quantity: 360.0 Unit: mL Repeat number: 4 allopurinol 100 mg oral tablet 1, tablet, By Mouth, Daily, # 90 tablet, Refills 1, Tot. Refills 1, Maintenance, 10/05/22 5:49:00 PMEDT, Route to Pharmacy Electronically, [facility]/pharmacy #[id number], 176, cm, 09/22/22 11:27:00 EDT, Height, [...] 0 Refills, Maintenance, 12/12/23 10:50:00 AM EDT, [facility]/pharmacy#[id number], 1 puffs Inhalation Daily, 179, cm, 08/14/23 10:37:00 EDT, Height, 108.7, kg, 08/14/23 10:37:00 EDT, Dry Weight Start Date: 12/12/23 Status: Ordered Quantity: 3.0 Unit: each Repeat number: 1 clonazePAM 1 mg oral tablet 1 tablet = 1 mg, By Mouth, 2 times a day, Fill when it's due, # 180 tablet, 1 Refills, Maintenance,09/19/23 7:56:00 AM EDT, Tablet, [facility]/pharmacy #[id number], 179, cm, 08/14/23 10:37:00 EDT, Height, 108.7, kg, 08/14/23 10:37:00 EDT, Dry Weight Start Date: 09/19/23 Status: Ordered Quantity: 180.0 Unit: tablet Repeat number: 2 Crestor 40 mg oral tablet 1 tablet = 40 mg, By Mouth, Daily, BRAND NAME ONLY, # 90 tablet, 3 Refills, Maintenance, 02/09/20 10:28:00 AM EST, Tablet, [facility] #[id number], 183, cm, 11/20/19 10:39:00 EDT, Height, 98.5, kg, 11/19/19 13:59:00 EDT, Dry Weight Start Date: 02/09/20 Stop Date: 02/03/21 Status: Ordered Quantity: 90.0 Unit: tablet Repeat number: 4 EpiPen 2-Bronson 0.3 mg injectable kit See Instructions, PRN Anaphylactic Reaction, Intramuscular Once may repeat if necessary, # 2 each, 1 Refills, Soft Stop, 04/27/20 2:34:00 PM EST, [facility] #[id number], 183, cm, 11/20/19 10:39:00EDT, Height, 98.5, kg, 11/19/19 13:59:00 EDT, Dry Weight Start Date: 04/27/20 Status: Ordered Quantity: 2.0 Unit: each Repeat number: 2 Flonase 50 mcg/inh nasal spray 1 sprays, Nares, Both, 2 times a day, in each nostril as directed, j45.40, # 3 each, 1 Refills, Maintenance, 05/15/22 10:55:00 AM EST, [place], [facility] #[id number], J45.909, 1 sprays Nares, Both2 times a [...] 3 Refills, Maintenance, 05/28/23 11:22:00 AM EDT, [place], [facility]/pharmacy #[id number], Partial fill upon patient request if [...] Refills, Soft Stop, 07/07/20 6:16:00 AM EDT, [facility] #[id number], 4 pens, 175.9, cm, 06/17/2111:57:00 EDT, Height, [...] Refills, Soft Stop, 09/01/20 2:32:00 PM EDT, [facility] #[id number], 175.9, cm, 06/16/20 12:57:00 EDT, Height, 98.5, kg, 11/19/19 13:59:00 EDT, Dry Weight Start Date: 09/01/20 Status: Ordered Quantity: 270.0 Unit: tablet Repeat number: 2 metFORMIN 1000 mg oral tablet 1 tablet = 1,000 mg, By Mouth, 2 times a day, # 180 tablet, 2 Refills, Maintenance, 09/24/20 10:29:00AM EDT, Tablet, [facility] #[id number], 175.9, cm, 06/16/20 12:57:00 EDT, Height, 98.5, kg, 11/19/19 13:59:00 EDT, Dry Weight Start Date: 09/24/20 Stop Date: 06/21/21 Status: Ordered Quantity: 180.0 Unit: tablet Repeat number: 3 montelukast 10 mg oral tablet 10 mg, 1, tablet, By Mouth, Daily, j45.40, # 90 tablet, Refills 0, Tot. Refills 0, Maintenance, 12/12/23 10:48:00 AM EDT, Route to Pharmacy Electronically, [facility]/pharmacy #[id number], Partial fill upon patient request if the [...] 11 Refills, Maintenance, 06/21/23 4:20:00 PM EDT, [facility], 178, cm, 04/09/23 13:33:00 EST, Height, 109.6, kg, 04/09/23 13:33:00 EST, Dry Weight Start Date: 06/21/23 Status: Ordered Quantity: 1.0 Unit: mL Repeat number: 1 Nucala Prefilled Autoinjector 100 mg/mL subcutaneous solution See Instructions, INJECT 100MG SUBCUTANEOUSLY EVERY 28 DAYS, # 1 mL, 2 Refills, Maintenance, 01/09/23 3:34:00 PM EDT, [facility], 176, cm, 12/05/22 7:16:00 EDT, Height, 104.5, kg, 07/03/22 13:29:00 EDT, Dry Weight Start Date: 01/09/23 Status: Ordered Quantity: 1.0 Unit: mL Repeat number: 1 NuLYTELY [place] oral powder for reconstitution See Instructions, By Mouth. as directed before colonoscopy, # 1 each, 0 Refills, Maintenance, 05/04/23 9:37:00 AM EST, [facility]/pharmacy #[id number], Partial fill upon patient request if [...] capsule, 1 Refills, Maintenance, 10/31/22 11:51:00 AM EDT,[id number], 176, cm, 09/22/22 11:27:00 EDT, Height, 104.5, [...] 09/22/22 Status: Ordered Repeat number: 1 Pen [place], 31 G x 8 mm BD Ultra [...] 10:55:00 AM EDT, Route to Pharmacy Electronically, [facility]/pharmacy #[id number], Partial fill upon patient request if [...] 10:55:00 AM EDT, Route to Pharmacy Electronically, [facility]/pharmacy #[id number], Partial fill upon patient request if [...] 10:55:00 AM EST, Route to Pharmacy Electronically, [facility]/pharmacy #[id number], Partial fill upon patient request if [...] 4:47:00 PM EDT, Route to Pharmacy Electronically, [facility]/pharmacy #[id number], 179, cm, 08/14/23 10:37:00 EDT, Height, [...] 4:47:00 PM EST, Route to Pharmacy Electronically, [facility]/pharmacy #[id number], 178, cm, 04/09/23 13:33:00 EST, Height, 109.6, kg, 04/09/23 13:33:00 EST, Dry Weight Start Date: 02/13/24 Stop Date: 08/11/24 Status: Ordered Quantity: 90.0 Unit: tablet Repeat number: 2 sertraline 100 mg oral tablet 2 tablet = 200 mg, By Mouth, Daily, # 180 tablet, 1 Refills, Maintenance, 08/11/24 4:47:00 PM EDT, [facility]/pharmacy #[id number], 179, cm, 08/14/23 10:37:00 EDT, Height, 108.7, kg, 08/14/23 10:37:00 EDT, Dry Weight Start Date: 08/11/24 Stop Date: 02/07/25 Status: Ordered Quantity: 180.0 Unit: tablet Repeat number: 2 sertraline 100 mg oral tablet 2 tablet = 200 mg, By Mouth, Daily, for 90 days, # 180 tablet, 1 Refills, Hard Stop 08/11/24 4:47:00PM EDT, 02/13/24 4:47:00 PM EST, [facility]/pharmacy #[id number], 178, cm, 04/09/23 13:33:00 EST, Height, 109.6,kg, 04/09/23 13:33:00 EST, Dry Weight Start Date: 02/13/24 Stop Date: 08/11/24 Status: Ordered Quantity: 180.0 Unit: tablet Repeat number: 2 Spiriva Respimat 1.25 mcg/inh inhalation aerosol See Instructions, INHALE 2 PUFFS BY MOUTH DAILY, j45.40, # 3 each, 0 Refills, Soft Stop, 12/12/23 10:49:00 AM EDT, [facility]/pharmacy #[id number], 179, cm, 08/14/23 10:37:00 EDT, Height, 108.7, kg, 08/14/23 10:37:00 EDT, Dry Weight Start Date: 12/12/23 Status: Ordered Quantity: 3.0 Unit: each Repeat number: 1 tamsulosin 0.4 mg oral capsule 1, capsule, By Mouth, 2 times a day, # 180 capsule, Refills 3, Tot. Refills 3, Maintenance, 10/22/23 10:22:00 AM EDT, Route to Pharmacy Electronically, [facility]/pharmacy #[id number], 179, cm, 08/14/23 10:37:00 EDT, Height, [...] Doppler on both LE 4Followed at the [facility], [facility] Social History Social History Type Response Smoking Status Former smoker; Tobac co user in household: No entered on: 08/29/16 Sex Sex Representation Male (finding) Patient Care team information Care Team Personnel Name: Jennie SILVERMAN, Adrian Luevano Position: [facility] Renal MD Member Role: Lifetime Consulting Physician Address: [address] [place] [address] [address] [place] [address]- [place] Tele[employer]: Name: Maria Dolores Luo RN Position: [facility] RN Member Role: Primary Care Nurse Name: Dweayne Kinsey MD Position: [facility] Cardiology MD Member Role: Lifetime Consulting Physician Address: [address] [place] [address]- [place] Tele[place]: Name: Jyothi Rangel RN Position: [facility] RN Member Role: Primary Care Nurse Name: Ed LEE, Elba Hutchins Position: [facility] Onco RN Member Role: Primary Care Nurse Name: June Manzano MA Position: [facility] Office Staff Member Role: Primary Care Nurse Name: Not on Staff, PCP Position: [facility] Physician (General Medicine) Member Role: PCP Name: Shell Gray RN Position: [facility] AMB Nurse Member Role: Primary Care Nurse Name: Bharathi Villa MD Position: [facility] Outreach Member Role: Lifetime Consulting Physician Address: [address] [facility] [place] [address]- [place] Tele[employer]: Name: David SILVERMAN, Wesly Montoya Position: Reference Physician Member Role: Lifetime Consulting Physician Address: [address] [place] [address]- [place] [employer]: Care Team Related Persons Name: HITESH SNIDER Insurance Providers Guarantor name: DEWAYNE SNIDER Health Plan Information #: 1 Payer: MEDICARE PART B OUTPT Member Number: NA Policy Number: NA Group Number: NA Health Plan Information #: 2 Payer: [place] Member Number: NA Policy Number: NA Group Number: NA
--- OUTSIDE RECORDS SUMMARY | 2024-02-27 10:44 | XMS_ITS | Continuity of Care Document ---
Author Organization [facility] Address [address] [place] [address]- Care Team Providers Care Photo Cartographer Name Role Phone Not on Staff, PCP Primary Care Physician Unavail able [place] [facility] [place]): [place]/09[place]24 - 02/09/24 [facility] [address] [place] [address] Attending Physician: Gerry Rangel MD Admitting Physician: Gerry Rangel MD Encounter Type: Pre-OutPatient One Time Allergies, [...] the 3rd booster Moderna Vaccine at [facility] 2Result Comment: [facility] in [place] administered the Influenza vaccine 3Result Comment: [facility] [id number] 4Admin Note: Patient states he received flu vaccine from [facility] 5Result Comment: [id number] 6Admin Note: [facility] 7Admin Note: [facility]rix 8Admin Note: [facility] Medications acetaminophen/butalbital/caffeine/codeine 300 mg-50 mg-40 mg-30 mg oral capsule 1 capsule, By Mouth, Daily, PRN Pain , Moderate, 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,The Maximum Daily Dose is 1 capsule, 175.9, cm, 11/10/20 10:49:00 EDT, Height, 98.5, kg, 11/19/19 13:59:00 EDT, Dry Weight, 1, capsule Start Date: 12/09/20 Status: Ordered Quantity: 18.0 Unit: capsule Repeat number: 1 Albuterol (Eqv-Ventolin HFA) 90 mcg/inh inhalation aerosol 2 puffs, Inhalation, Every 6 hours, j44.9, # 3 each, 3 Refills, Maintenance, 12/12/23 11:53:00 AM EDT, [facility]/pharmacy #[id number], Partial fill upon patient request if the [...] Refills, Maintenance, 10/23/22 2:16:00 PM EDT, Solution, [facility]/pharmacy #[id number], 3 mL Inhalation 4 times a day,Instr:j45.40, 176, cm, 09/22/22 11:27:00 EDT, Height, 104.5, kg, 07/03/22 13:29:00 EDT, Dry Weight Start Date: 10/23/22 Status: Ordered Quantity: 360.0 Unit: mL Repeat number: 4 allopurinol 100 mg oral tablet 1, tablet, By Mouth, Daily, # 90 tablet, Refills 1, Tot. Refills 1, Maintenance, 10/05/22 5:49:00 PMEDT, Route to Pharmacy Electronically, [facility]/pharmacy #[id number], 176, cm, 09/22/22 11:27:00 EDT, [...] 0 Refills, Maintenance, 12/12/23 10:50:00 AM EDT, [facility]/pharmacy#0315, 1 puffs Inhalation Daily, 179, cm, 08/14/23 10:37:00 EDT, Height, 108.7, kg, 08/14/23 10:37:00 EDT, Dry Weight Start Date: 12/12/23 Status: Ordered Quantity: 3.0 Unit: each Repeat number: 1 clonazePAM 1 mg oral tablet 1 tablet = 1 mg, By Mouth, 2 times a day, Fill when it's due, # 180 tablet, 1 Refills, Maintenance,09/19/23 7:56:00 AM EDT, Tablet, [facility]/pharmacy #0315, 179, cm, 08/14/23 10:37:00 EDT, Height, 108.7, kg, 08/14/23 10:37:00 EDT, Dry Weight Start Date: 09/19/23 Status: Ordered Quantity: 180.0 Unit: tablet Repeat number: 2 Crestor 40 mg oral tablet 1 tablet = 40 mg, By Mouth, Daily, BRAND NAME ONLY, # 90 tablet, 3 Refills, Maintenance, 02/09/20 10:28:00 AM EST, Tablet, [facility] #[id number], 183, cm, 11/20/19 10:39:00 EDT, Height, 98.5, kg, 11/19/19 13:59:00 EDT, Dry Weight Start Date: 02/09/20 Stop Date: 02/03/21 Status: Ordered Quantity: 90.0 Unit: tablet Repeat number: 4 EpiPen 2-Bronson 0.3 mg injectable kit See Instructions, PRN Anaphylactic Reaction, Intramuscular Once may repeat if necessary, # 2 each, 1 Refills, Soft Stop, 04/27/20 2:34:00 PM EST, [facility] #[id number], 183, cm, 11/20/19 10:39:00EDT, Height, 98.5, kg, 11/19/19 13:59:00 EDT, Dry Weight Start Date: 04/27/20 Status: Ordered Quantity: 2.0 Unit: each Repeat number: 2 Flonase 50 mcg/inh nasal spray 1 sprays, Nares, Both, 2 times a day, in each nostril as directed, j45.40, # 3 each, 1 Refills, Maintenance, 05/15/22 10:55:00 AM EST, [place], [facility] #[id number], J45.909, 1 sprays Nares, Both2 times a [...] 3 Refills, Maintenance, 05/28/23 11:22:00 AM EDT, [place], [facility]/pharmacy #[id number], Partial fill upon patient request [...] Refills, Soft Stop, 07/07/20 6:16:00 AM EDT, [facility] #[id number], 4 pens, 175.9, cm, 06/17/2111:57:00 EDT, Height, [...] Refills, Soft Stop, 09/01/20 2:32:00 PM EDT, [facility] #[id number], 175.9, cm, 06/16/20 12:57:00 EDT, Height, 98.5, kg, 11/19/19 13:59:00 EDT, Dry Weight Start Date: 09/01/20 Status: Ordered Quantity: 270.0 Unit: tablet Repeat number: 2 metFORMIN 1000 mg oral tablet 1 tablet = 1,000 mg, By Mouth, 2 times a day, # 180 tablet, 2 Refills, Maintenance, 09/24/20 10:29:00AM EDT, Tablet, [facility] #[id number], 175.9, cm, 06/16/20 12:57:00 EDT, Height, 98.5, kg, 11/19/19 13:59:00 EDT, Dry Weight Start Date: 09/24/20 Stop Date: 06/21/21 Status: Ordered Quantity: 180.0 Unit: tablet Repeat number: 3 montelukast 10 mg oral tablet 10 mg, 1, tablet, By Mouth, Daily, j45.40, # 90 tablet, Refills 0, Tot. Refills 0, Maintenance, 12/12/23 10:48:00 AM EDT, Route to Pharmacy Electronically, [facility]/pharmacy #[id number], Partial fill upon patient request if the [...] 11 Refills, Maintenance, 06/21/23 4:20:00 PM EDT, [facility], 178, cm, 04/09/23 13:33:00 EST, Height, 109.6, kg, 04/09/23 13:33:00 EST, Dry Weight Start Date: 06/21/23 Status: Ordered Quantity: 1.0 Unit: mL Repeat number: 1 Nucala Prefilled Autoinjector 100 mg/mL subcutaneous solution See Instructions, INJECT 100MG SUBCUTANEOUSLY EVERY 28 DAYS, # 1 mL, 2 Refills, Maintenance, 01/09/23 3:34:00 PM EDT, [facility], 176, cm, 12/05/22 7:16:00 EDT, Height, 104.5, kg, 07/03/22 13:29:00 EDT, Dry Weight Start Date: 01/09/23 Status: Ordered Quantity: 1.0 Unit: mL Repeat number: 1 NuLYTELY Lemon [place] oral powder for reconstitution See Instructions, By Mouth. as directed before colonoscopy, # 1 each, 0 Refills, Maintenance, 05/04/23 9:37:00 AM EST, [facility]/pharmacy #[id number], Partial fill upon patient request [...] capsule, 1 Refills, Maintenance, 10/31/22 11:51:00 AM EDT,[facility], 176, cm, 09/22/22 11:27:00 EDT, Height, 104.5, [...] 09/22/22 Status: Ordered Repeat number: 1 Pen [place], 31 G x 8 mm BD Ultra [...] 10:55:00 AM EDT, Route to Pharmacy Electronically, [facility]/pharmacy #[id number], Partial fill upon patient request [...] 10:55:00 AM EDT, Route to Pharmacy Electronically, [facility]/pharmacy #[id number], Partial fill upon patient request [...] 10:55:00 AM EST, Route to Pharmacy Electronically, [facility]/pharmacy #[id number], Partial fill upon patient request [...] 4:47:00 PM EDT, [id number], 179, cm, 08/14/23 10:37:00 EDT, [...] 4:47:00 PM EST, Route to Pharmacy Electronically, [facility]/pharmacy #[id number], 178, cm, 04/09/23 13:33:00 EST, Height, 109.6, kg, 04/09/23 13:33:00 EST, Dry Weight Start Date: 02/13/24 Stop Date: 08/11/24 Status: Ordered Quantity: 90.0 Unit: tablet Repeat number: 2 sertraline 100 mg oral tablet 2 tablet = 200 mg, By Mouth, Daily, # 180 tablet, 1 Refills, Maintenance, 08/11/24 4:47:00 PM EDT, [facility]/pharmacy #0315, 179, cm, 08/14/23 10:37:00 EDT, Height, 108.7, kg, 08/14/23 10:37:00 EDT, Dry Weight Start Date: 08/11/24 Stop Date: 02/07/25 Status: Ordered Quantity: 180.0 Unit: tablet Repeat number: 2 sertraline 100 mg oral tablet 2 tablet = 200 mg, By Mouth, Daily, for 90 days, # 180 tablet, 1 Refills, Hard Stop 08/11/24 4:47:00PM EDT, 02/13/24 4:47:00 PM EST, [facility]/pharmacy #[id number], 178, cm, 04/09/23 13:33:00 EST, Height, 109.6,kg, 04/09/23 13:33:00 EST, Dry Weight Start Date: 02/13/24 Stop Date: 08/11/24 Status: Ordered Quantity: 180.0 Unit: tablet Repeat number: 2 Spiriva Respimat 1.25 mcg/inh inhalation aerosol See Instructions, INHALE 2 PUFFS BY MOUTH DAILY, j45.40, # 3 each, 0 Refills, Soft Stop, 12/12/23 10:49:00 AM EDT, [facility]/pharmacy #0315, 179, cm, 08/14/23 10:37:00 EDT, Height, 108.7, kg, 08/14/23 10:37:00 EDT, Dry Weight Start Date: 12/12/23 Status: Ordered Quantity: 3.0 Unit: each Repeat number: 1 tamsulosin 0.4 mg oral capsule 1, capsule, By Mouth, 2 times a day, # 180 capsule, Refills 3, Tot. Refills 3, Maintenance, 10/22/23 10:22:00 AM EDT, Route to Pharmacy Electronically, [facility]/pharmacy #[id number], 179, cm, 08/14/23 10:37:00 EDT, [...] Doppler on both LE 4Followed at the [facility], [facility] Elio Social History Social History Type Response Smoking Status Former smoker; Tobac co user in household: No entered on: 08/29/16 Sex Sex Representation Male (finding) Patient Care team information Care Team Personnel Name: Adrian Schneider MD Position: [facility] Renal MD Member Role: Lifetime Consulting Physician Address: [address] [place] [address]- [place] Tele[place]: Name: Maria Dolores Luo RN Position: S RN Member Role: Primary Care Nurse Name: Dewayne Kinsey MD Position: [facility] Cardiology MD Member Role: Lifetime Consulting Physician Address: [address] [place] [address]- [place] Tele[place]: Name: Jyothi Rangel RN Position: [facility] RN Member Role: Primary Care Nurse Name: Ed LEE, Elba Hutchins Position: [facility] Onco RN Member Role: Primary Care Nurse Name: June Manzano MA Position: [facility] Amb Office Staff Member Role: Primary Care Nurse Name: Not on Staff, PCP Position: [facility] Physician (General Medicine) Member Role: PCP Name: Shell Gray RN Position: [facility] AMB Nurse Member Role: Primary Care Nurse Name: Bharathi Villa MD Position: [facility] Renal MD Member Role: Lifetime Consulting Physician Address: [address] [facility] [place] [address]- [place] [employer]: Name: Wesly Hernandez MD Position: Reference Physician Member Role: Lifetime Consulting Physician Address: [address] [place] [address]- [place] [employer]: Care Team Related Persons Name: HITESH SNIDER Insurance Providers Guarantor name: DEWAYNE SNIDER Health Plan Information #: 1 Payer: MEDICARE PART B OUTPT Member Number: [id number] Policy Number: NA Group Number: NA Health Plan Information #: 2 Payer: [facility] Member Number: [id number] Policy Number: NA Group Number: NA
--- OUTSIDE RECORDS SUMMARY | 2024-02-27 10:44 | XMS_ITS | Continuity of Care Document ---
Author Organization [facility] Address [address] [place] [address]- Care Team Providers Care Agricultural Chemist Name Role Phone Not on Staff, PCP Primary Care Physician Unavail able Encounter [facility] Date(s): 01/23/24 - 02/22/24 [facility] [address] [place] [id number]- Encounter Type: Triage Allergies, Adverse Reactions, Alerts [...] received the 3rd booster Moderna Vaccine at [facility] 2Result Comment: Tj in [place] administered the Influenza vaccine 3Result Comment: [facility] [id number] 4Admin Note: Patient states he received flu vaccine from [facility] 5Result Comment: [id number] 6Admin Note: [facility] 7Admin Note: [facility] 8Admin Note: [facility] 9Location History: [facility] 11Admin Note: [facility] Medications acetaminophen/butalbital/caffeine/codeine 300 mg-50 mg-40 mg-30 mg oral capsule 1 capsule, By Mouth, Daily, PRN Pain , Moderate, DISPENSE AMOUNT DECREASED PER PT REQUEST PROPERTY MANAGEMENT COORDINATOR CHECKED, # 18 capsule, 0 Refills, Soft Stop, 12/09/20 4:00:00 PM EDT, [facility] #[id number], DISPENSE AMOUNT DECREASED PER PT REQUEST, 1 capsule By Mouth Daily,PRN:Pain , Moderate,Instr:DISPENSE AMOUNT DECREASED PER PT REQUEST; PROPERTY MANAGEMENT COORDINATOR CHECKED,The Maximum Daily Dose is 1 capsule, 175.9, cm, 11/10/20 10:49:00 EDT, Height, 98.5, kg, 11/19/19 13:59:00 EDT, Dry Weight, 1, capsule Start Date: 12/09/20 Status: Ordered Quantity: 18.0 Unit: capsule Repeat number: 1 Albuterol (Eqv-Ventolin HFA) 90 mcg/inh inhalation aerosol 2 puffs, Inhalation, Every 6 hours, j44.9, # 3 each, 3 Refills, Maintenance, 12/12/23 11:53:00 AM EDT, [facility]/pharmacy #[id number], Partial fill upon patient request if the [...] Refills, Maintenance, 10/23/22 2:16:00 PM EDT, Solution, [facility]/pharmacy #[id number], 3 mL Inhalation 4 times a day,Instr:j45.40, 176, cm, 09/22/22 11:27:00 EDT, Height, 104.5, kg, 07/03/22 13:29:00 EDT, Dry Weight Start Date: 10/23/22 Status: Ordered Quantity: 360.0 Unit: mL Repeat number: 4 allopurinol 100 mg oral tablet 1, tablet, By Mouth, Daily, # 90 tablet, Refills 1, Tot. Refills 1, Maintenance, 10/05/22 5:49:00 PMEDT, Route to Pharmacy Electronically, [facility]/pharmacy #[id number], 176, cm, 09/22/22 11:27:00 EDT, Height, [...] 0 Refills, Maintenance, 12/12/23 10:50:00 AM EDT, [facility]/pharmacy#[id number], 1 puffs Inhalation Daily, 179, cm, 08/14/23 10:37:00 EDT, Height, 108.7, kg, 08/14/23 10:37:00 EDT, Dry Weight Start Date: 12/12/23 Status: Ordered Quantity: 3.0 Unit: each Repeat number: 1 clonazePAM 1 mg oral tablet 1 tablet = 1 mg, By Mouth, 2 times a day, Fill when it's due, # 180 tablet, 1 Refills, Maintenance,09/19/23 7:56:00 AM EDT, Tablet, [facility]/pharmacy #[id number], 179, cm, 08/14/23 10:37:00 EDT, Height, 108.7, kg, 08/14/23 10:37:00 EDT, Dry Weight Start Date: 09/19/23 Status: Ordered Quantity: 180.0 Unit: tablet Repeat number: 2 Crestor 40 mg oral tablet 1 tablet = 40 mg, By Mouth, Daily, BRAND NAME ONLY, # 90 tablet, 3 Refills, Maintenance, 02/09/20 10:28:00 AM EST, Tablet, [facility] #[id number], 183, cm, 11/20/19 10:39:00 EDT, Height, 98.5, kg, 11/19/19 13:59:00 EDT, Dry Weight Start Date: 02/09/20 Stop Date: 02/03/21 Status: Ordered Quantity: 90.0 Unit: tablet Repeat number: 4 EpiPen 2-Bronson 0.3 mg injectable kit See Instructions, PRN Anaphylactic Reaction, Intramuscular Once may repeat if necessary, # 2 each, 1 Refills, Soft Stop, 04/27/20 2:34:00 PM EST, [facility] #[id number], 183, cm, 11/20/19 10:39:00EDT, Height, 98.5, kg, 11/19/19 13:59:00 EDT, Dry Weight Start Date: 04/27/20 Status: Ordered Quantity: 2.0 Unit: each Repeat number: 2 Flonase 50 mcg/inh nasal spray 1 sprays, Nares, Both, 2 times a day, in each nostril as directed, j45.40, # 3 each, 1 Refills, Maintenance, 05/15/22 10:55:00 AM EST, [facility], [facility] #[id number], J45.909, 1 sprays Nares, Both2 times a [...] 3 Refills, Maintenance, 05/28/23 11:22:00 AM EDT, [place], [facility]/pharmacy #[id number], Partial fill upon patient request if [...] Refills, Soft Stop, 07/07/20 6:16:00 AM EDT, [facility] #[id number], 4 pens, 175.9, cm, 06/17/2111:57:00 EDT, Height, [...] Refills, Soft Stop, 09/01/20 2:32:00 PM EDT, [facility] #[id number], 175.9, cm, 06/16/20 12:57:00 EDT, Height, 98.5, kg, 11/19/19 13:59:00 EDT, Dry Weight Start Date: 09/01/20 Status: Ordered Quantity: 270.0 Unit: tablet Repeat number: 2 metFORMIN 1000 mg oral tablet 1 tablet = 1,000 mg, By Mouth, 2 times a day, # 180 tablet, 2 Refills, Maintenance, 09/24/20 10:29:00AM EDT, Tablet, [facility] #[id number], 175.9, cm, 06/16/20 12:57:00 EDT, Height, 98.5, kg, 11/19/19 13:59:00 EDT, Dry Weight Start Date: 09/24/20 Stop Date: 06/21/21 Status: Ordered Quantity: 180.0 Unit: tablet Repeat number: 3 montelukast 10 mg oral tablet 10 mg, 1, tablet, By Mouth, Daily, j45.40, # 90 tablet, Refills 0, Tot. Refills 0, Maintenance, 12/12/23 10:48:00 AM EDT, Route to Pharmacy Electronically, [facility]/pharmacy #[id number], Partial fill upon patient request if the [...] 11 Refills, Maintenance, 06/21/23 4:20:00 PM EDT, [facility], 178, cm, 04/09/23 13:33:00 EST, Height, 109.6, kg, 04/09/23 13:33:00 EST, Dry Weight Start Date: 06/21/23 Status: Ordered Quantity: 1.0 Unit: mL Repeat number: 1 Nucala Prefilled Autoinjector 100 mg/mL subcutaneous solution See Instructions, INJECT 100MG SUBCUTANEOUSLY EVERY 28 DAYS, # 1 mL, 2 Refills, Maintenance, 01/09/23 3:34:00 PM EDT, [facility], 176, cm, 12/05/22 7:16:00 EDT, Height, 104.5, kg, 07/03/22 13:29:00 EDT, Dry Weight Start Date: 01/09/23 Status: Ordered Quantity: 1.0 Unit: mL Repeat number: 1 NuLYTELY Lemon [employer] oral powder for reconstitution See Instructions, By Mouth. as directed before colonoscopy, # 1 each, 0 Refills, Maintenance, 05/04/23 9:37:00 AM EST, [facility]/pharmacy #[id number], Partial fill upon patient request if [...] capsule, 1 Refills, Maintenance, 10/31/22 11:51:00 AM EDT,[id number], 176, cm, 09/22/22 11:27:00 EDT, Height, 104.5, [...] 09/22/22 Status: Ordered Repeat number: 1 Pen Graff, 31 G x 8 mm BD Ultra [...] 10:55:00 AM EDT, Route to Pharmacy Electronically, [facility]/pharmacy #[id number], Partial fill upon patient request if [...] 10:55:00 AM EDT, Route to Pharmacy Electronically, [facility]/pharmacy #[id number], Partial fill upon patient request if [...] 10:55:00 AM EST, Route to Pharmacy Electronically, [facility]/pharmacy #[id number], Partial fill upon patient request if [...] 4:47:00 PM EDT, Route to Pharmacy Electronically, [facility]/pharmacy #[id number], 179, cm, 08/14/23 10:37:00 EDT, Height, [...] 4:47:00 PM EST, Route to Pharmacy Electronically, [facility]/pharmacy #[id number], 178, cm, 04/09/23 13:33:00 EST, Height, 109.6, kg, 04/09/23 13:33:00 EST, Dry Weight Start Date: 02/13/24 Stop Date: 08/11/24 Status: Ordered Quantity: 90.0 Unit: tablet Repeat number: 2 sertraline 100 mg oral tablet 2 tablet = 200 mg, By Mouth, Daily, # 180 tablet, 1 Refills, Maintenance, 08/11/24 4:47:00 PM EDT, [facility]/pharmacy #[id number], 179, cm, 08/14/23 10:37:00 EDT, Height, 108.7, kg, 08/14/23 10:37:00 EDT, Dry Weight Start Date: 08/11/24 Stop Date: 02/07/25 Status: Ordered Quantity: 180.0 Unit: tablet Repeat number: 2 sertraline 100 mg oral tablet 2 tablet = 200 mg, By Mouth, Daily, for 90 days, # 180 tablet, 1 Refills, Hard Stop 08/11/24 4:47:00PM EDT, 02/13/24 4:47:00 PM EST, [facility]/pharmacy #[id number], 178, cm, 04/09/23 13:33:00 EST, Height, 109.6,kg, 04/09/23 13:33:00 EST, Dry Weight Start Date: 02/13/24 Stop Date: 08/11/24 Status: Ordered Quantity: 180.0 Unit: tablet Repeat number: 2 Spiriva Respimat 1.25 mcg/inh inhalation aerosol See Instructions, INHALE 2 PUFFS BY MOUTH DAILY, j45.40, # 3 each, 0 Refills, Soft Stop, 12/12/23 10:49:00 AM EDT, [facility]/pharmacy #[id number], 179, cm, 08/14/23 10:37:00 EDT, Height, 108.7, kg, 08/14/23 10:37:00 EDT, Dry Weight Start Date: 12/12/23 Status: Ordered Quantity: 3.0 Unit: each Repeat number: 1 tamsulosin 0.4 mg oral capsule 1, capsule, By Mouth, 2 times a day, # 180 capsule, Refills 3, Tot. Refills 3, Maintenance, 10/22/23 10:22:00 AM EDT, Route to Pharmacy Electronically, [facility]/pharmacy #[id number], 179, cm, 08/14/23 10:37:00 EDT, Height, [...] Doppler on both LE 4Followed at the [facility] Social History Social History Type Response Smoking Status Former smoker; Tobac co user in household: No entered on: 08/29/16 Sex Sex Representation Male (finding) Patient Care team information Care Team Personnel Name: Jennie SILVERMAN, Adrian Luevano Position: [facility] Renal MD Member Role: Lifetime Consulting Physician Address: [address] [place] [address]- [place] [employer]: Name: Maria Dolores Luo RN Position: [facility] RN Member Role: Primary Care Nurse Name: Dewayne Kinsey MD Position: [facility] Cardiology MD Member Role: Lifetime Consulting Physician Address: [address] [place] [address]- [place] [employer]: Name: Jyothi Rangel RN Position: [facility] RN Member Role: Primary Care Nurse Name: Ed LEE, Elba Hutchins Position: [facility] Onco RN Member Role: Primary Care Nurse Name: June Manzano MA Position: [facility] Office Staff Member Role: Primary Care Nurse Name: Not on Staff, PCP Position: [facility] Physician (General Medicine) Member Role: PCP Name: Shell Gray RN Position: [facility] AMB Nurse Member Role: Primary Care Nurse Name: Bharathi Villa MD Position: [facility] Outreach Member Role: Lifetime Consulting Physician Address: [address] [facility], [place] [address]- [place] [employer]: Name: Wesly Hernandez MD Position: Reference Physician Member Role: Lifetime Consulting Physician Address: [address] [place] [address]- [place] [employer]: Care Team Related Persons Name: HITESH SNIDER Insurance Providers Guarantor name: DEWAYNE SNIDER Health Plan Information #: 1 Payer: MEDICARE PART B OUTPT Member Number: NA Policy Number: NA Group Number: NA Health Plan Information #: 2 Payer: [place] Member Number: NA Policy Number: NA Group Number: NA
== END 2024-02-22 15:42 | disposition home or self-care (01) ==
PROVIDERS: Visit Provider Internal Medicine Nephrology
DX: I12.9 Hypertensive chronic kidney disease with stage 1 through stage 4 chronic kidney disease, or unspecified chronic kidney disease (principal); E11.22 Type 2 diabetes mellitus with diabetic chronic kidney disease; N18.2 Chronic kidney disease, stage 2 (mild)
CPT/HCPCS: 99214

== ENCOUNTER 2024-02-22 14:42 | Outpatient (REF) | payer MEDICARE, MEDICAID, SELFPAY ==
[2024-02-22 16:44] LABS: Anion Gap 13 (12-20); Blood Urea Nitrogen 14 mg/dL (9-16); Carbon Dioxide 25 mmol/L (22-29); Chloride 107 mmol/L (96-108); Estimated Glomerular Filt Rate 58; Potassium 4.5 mmol/L (3.3-5.1); Sodium 140 mmol/L (135-145)
[2024-02-22 17:50] LABS: Creatinine Urine 207.33 mg/dL; Protein/Creatinine Ratio, Ur 0.32 (<0.2); Total Protein Urine Random 67 mg/dL (<12)
== END 2024-02-22 14:43 | disposition home or self-care (01) ==
LOC: HO.LAB 14:42
PROVIDERS: Visit Provider Internal Medicine Nephrology
DX: N18.2 Chronic kidney disease, stage 2 (mild) (principal); E11.21 Type 2 diabetes mellitus with diabetic nephropathy; I10 Essential (primary) hypertension
CPT/HCPCS: 36415; 80051; 82565; 82570; 84156; 84520; 99212

== ENCOUNTER 2024-03-21 11:42 | Outpatient (AMB) | payer MEDICARE, MEDICAID, SELFPAY ==
--- NOTE | 2024-03-21 11:41 | HO.NEPHOV_ITS ---
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 His serum creatinine had gone up to 1.9 on HCTZ. 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 He underwent cardiac catheterization after his serum creatinine improved . 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 His follow up serum creatinine has been stable but his BP control has been quite poor. He is on ARB as well as carvedilol. He denied any chest pain, SOB, edema, PND, orthopnea, NSAID intake. He is unsure about proteinuria PFSH Social History Alcohol intake: former Patient Tobacco Use Status: Former Tobacco user Review of Systems Const All systems reviewed & are unremarkable except as noted in HPI and below Physical Exam Vital Signs: Last Vital Signs Pulse 72 03/21/24 11:42 BP 172/82 H 03/21/24 11:42 Pulse Ox 95 03/21/24 11:42 Oxygen Delivery Method Room Air 03/21/24 11:42 BMI result Body Mass Index 36.2 Const General: comfortable and no acute distress Orientation/consciousness: patient oriented x3 HEENT Head: Yes normocephalic Mouth: Normal oral and palatal mucosa present Eyes EOM: EOMs intact bilaterally Neck Neck: Yes supple Resp Auscultation: clear to auscultation bilaterally Cardio Jugular venous distension: no JVD Rate: regular rate GI Palpation (GI): Soft to palpation Auscultation: normal bowel sounds General: Yes no CVA tenderness Back/Spine/Pelvis Back: no CVA tenderness Skin General skin exam: no rashes or lesions noted Neuro General: patient oriented x3 and moves all extremities Extrem General: Yes no pedal edema Results Reviewed Nephrology Results: Sodium 140 mmol/L (135-145) 02/22/24 Potassium 4.5 mmol/L (3.3-5.1) 02/22/24 Chloride 107 mmol/L (96-108) 02/22/24 Carbon Dioxide 25 mmol/L (22-29) 02/22/24 BUN 14 mg/dL (9-16) 02/22/24 Creatinine 1.26 mg/dL (0.5-1.4) 02/22/24 Urine Creatinine 207.33 mg/dL 02/22/24 Protein/Creatinin Ratio 0.32 (<0.2) H 02/22/24 Assessment & Plan Assessment & Plan (1) Renal artery stenosis: Code(s): I70.1 - Atherosclerosis of renal artery Category: Medical (2) CKD (chronic kidney disease) stage 2, GFR 60-89 ml/min: Code(s): N18.2 - Chronic kidney disease, stage 2 (mild) Category: Medical (3) Hypertension: Code(s): I10 - Essential (primary) hypertension Category: Medical Qualifiers: Hypertension type: primary hypertension Qualified Code(s): I10 - Essential (primary) hypertension Plan 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 His BP is uncontrolled. He has diabetic nephropathy. He needs to loose weight and keep his blood sugar at goal. His serum creatinine is close to baseline. I increased his valsartan by 40 mg daily ( already on 160 mg daily). I shall maximize his ARB with time and add Jardiance. He avoids NSAID's. I ordered a Doppler of his renal arteries. F/U given Orders: Orders Creatinine 5 Weeks I10 - Essential (primary) hypertension, I70.1 - Atherosclerosis of renal artery, N18.2 - Chronic kidney disease, stage 2 (mild) Electrolytes 5 Weeks I10 - Essential (primary) hypertension, I70.1 - Atherosclerosis of renal artery, N18.2 - Chronic kidney disease, stage 2 (mild) US renal doppler 2 Weeks I70.1 - Atherosclerosis of renal artery Blood Urea Nitrogen 5 Weeks I10 - Essential (primary) hypertension, I70.1 - Atherosclerosis of renal artery, N18.2 - Chronic kidney disease, stage 2 (mild) Medications: New valsartan 40 mg PO DAILY 90 tabs 3RF 90 days Coding Level of Care Code Est Pt Level 4 (37463) Diagnoses Renal artery stenosis I70.1 CKD (chronic kidney disease) stage 2, GFR 60-89 ml/min N18.2 Primary hypertension I10 Hypertension type: primary hypertension
[2024-03-21 11:42] VITALS: BP 172/82; PULSE 72; O2SAT 95; BMI 36.2
--- OUTSIDE RECORDS SUMMARY | 2024-03-21 13:29 | XMS_ITS | Continuity of Care Document ---
Author Organization [facility] ter Address [address] [place] [address]- Care Team Providers Care Education And Training Coordinator Name Role Phone Not on Staff, PCP Primary Care Physician Unavail able Encounter [facility] Date(s): 01/15/24 - 03/01/[address] [address] Attending Physician: Adrian Schneider MD Admitting Physician: Adrian Schneider MD Referring Physician: Adrian Schneider MD Encounter Type: Pre-Outpt Allergies, Adverse Reactions, Alerts Substance Criticality Severity [...] influenza virus vaccine, inactivated 4 11/07/17 Gi doimnick influenza virus vaccine, inactivated 5 05/07/17 Gi [...] received the 3rd booster Moderna Vaccine at [facility] 2Result Comment: [facility] in [place] administered the Influenza vaccine 3Result Comment: [facility] [id number] 4Admin Note: Patient states he received flu vaccine from [facility] 5Result Comment: [id number] 6Admin Note: [facility] 7Admin Note: [facility] shingrix 8Admin Note: [facility]Location [facility] 10Location [facility] 11Admin Note: [facility] Medications acetaminophen/butalbital/caffeine/codeine 300 mg-50 mg-40 mg-30 mg oral capsule 1 capsule, By Mouth, Daily, PRN Pain , Moderate, DISPENSE AMOUNT DECREASED PER PT REQUEST 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9, # 3 each, 3 Refills, Maintenance, 12/12/23 11:53:00 AM EDT, [facility]/pharmacy #[id number], Partial fill upon patient request if the [...] Maintenance, 10/23/22 2:16:00 PM EDT, Solution, [facility]/pharmacy #[id number], 3 mL Inhalation 4 times a day,Instr:j45.40, 176, cm, 09/22/22 11:27:00 EDT, Height, 104.5, kg, 07/03/22 13:29:00 EDT, Dry Weight Start Date: 10/23/22 Status: Ordered Quantity: 360.0 Unit: mL Repeat number: 4 allopurinol 100 mg oral tablet 1, tablet, By Mouth, Daily, # 90 tablet, Refills 1, Tot. Refills 1, Maintenance, 10/05/22 5:49:00 PMEDT, Route to Pharmacy Electronically, [facility]/pharmacy #[id number], 176, cm, 09/22/22 11:27:00 EDT, [...] Refills, Maintenance, 12/12/23 10:50:00 AM EDT, [facility]/pharmacy#[id number], 1 puffs Inhalation Daily, 179, cm, 08/14/23 10:37:00 EDT, Height, 108.7, kg, 08/14/23 10:37:00 EDT, Dry Weight Start Date: 12/12/23 Status: Ordered Quantity: 3.0 Unit: each Repeat number: 1 clonazePAM 1 mg oral tablet 1 tablet = 1 mg, By Mouth, 2 times a day, Fill when it's due, # 180 tablet, 1 Refills, Maintenance,09/19/23 7:56:00 AM EDT, Tablet, [facility]/pharmacy #[id number], 179, cm, 08/14/23 10:37:00 EDT, Height, 108.7, kg, 08/14/23 10:37:00 EDT, Dry Weight Start Date: 09/19/23 Status: Ordered Quantity: 180.0 Unit: tablet Repeat number: 2 Crestor 40 mg oral tablet 1 tablet = 40 mg, By Mouth, Daily, BRAND NAME ONLY, # 90 tablet, 3 Refills, Maintenance, 02/09/20 10:28:00 AM EST, Tablet, [facility] #[id number], 183, cm, 11/20/19 10:39:00 EDT, Height, 98.5, kg, 11/19/19 13:59:00 EDT, Dry Weight Start Date: 02/09/20 Stop Date: 02/03/21 Status: Ordered Quantity: 90.0 Unit: tablet Repeat number: 4 EpiPen 2-Bronson 0.3 mg injectable kit See Instructions, PRN Anaphylactic Reaction, Intramuscular Once may repeat if necessary, # 2 each, 1 Refills, Soft Stop, 04/27/20 2:34:00 PM [id number], 183, cm, 11/20/19 10:39:00EDT, Height, 98.5, kg, 11/19/19 13:59:00 EDT, Dry Weight Start Date: 04/27/20 Status: Ordered Quantity: 2.0 Unit: each Repeat number: 2 Flonase 50 mcg/inh nasal spray 1 sprays, Nares, Both, 2 times a day, in each nostril as directed, j45.40, # 3 each, 1 Refills, Maintenance, 05/15/22 10:55:00 AM EST, [place], [facility] #[id number], J45.909, 1 sprays Nares, Both2 times a [...] 3 Refills, Maintenance, 05/28/23 11:22:00 AM EDT, [place], [facility]/pharmacy #0315, Partial fill upon patient request [...] Refills, Soft Stop, 07/07/20 6:16:00 AM EDT, [facility] #[id number], 4 pens, 175.9, cm, 06/17/2111:57:00 EDT, Height, [...] Refills, Soft Stop, 09/01/20 2:32:00 PM EDT, [facility] #[id number], 175.9, cm, 06/16/20 12:57:00 EDT, Height, 98.5, kg, 11/19/19 13:59:00 EDT, Dry Weight Start Date: 09/01/20 Status: Ordered Quantity: 270.0 Unit: tablet Repeat number: 2 metFORMIN 1000 mg oral tablet 1 tablet = 1,000 mg, By Mouth, 2 times a day, # 180 tablet, 2 Refills, Maintenance, 09/24/20 10:29:00AM EDT, Tablet, [facility] #[id number], 175.9, cm, 06/16/20 12:57:00 EDT, Height, 98.5, kg, 11/19/19 13:59:00 EDT, Dry Weight Start Date: 09/24/20 Stop Date: 06/21/21 Status: Ordered Quantity: 180.0 Unit: tablet Repeat number: 3 montelukast 10 mg oral tablet 10 mg, 1, tablet, By Mouth, Daily, j45.40, # 90 tablet, Refills 0, Tot. Refills 0, Maintenance, 12/12/23 10:48:00 AM EDT, Route to Pharmacy Electronically, [facility]/pharmacy #[id number], Partial fill upon patient request if the [...] 11 Refills, Maintenance, 06/21/23 4:20:00 PM EDT, [facility], 178, cm, 04/09/23 13:33:00 EST, Height, 109.6, kg, 04/09/23 13:33:00 EST, Dry Weight Start Date: 06/21/23 Status: Ordered Quantity: 1.0 Unit: mL Repeat number: 1 Nucala Prefilled Autoinjector 100 mg/mL subcutaneous solution See Instructions, INJECT 100MG SUBCUTANEOUSLY EVERY 28 DAYS, # 1 mL, 2 Refills, Maintenance, 01/09/23 3:34:00 PM EDT, [facility], 176, cm, 12/05/22 7:16:00 EDT, Height, 104.5, kg, 07/03/22 13:29:00 EDT, Dry Weight Start Date: 01/09/23 Status: Ordered Quantity: 1.0 Unit: mL Repeat number: 1 NuLYTELY Lemon [place] oral powder for reconstitution See Instructions, By Mouth. as directed before colonoscopy, # 1 each, 0 Refills, Maintenance, 05/04/23 9:37:00 AM EST, [facility]/pharmacy #[id number], Partial fill upon patient request [...] 1 Refills, Maintenance, 10/31/22 11:51:00 AM EDT,[facility]ORE [facility], 176, cm, 09/22/22 11:27:00 EDT, Height, 104.5, [...] 09/22/22 Status: Ordered Repeat number: 1 Pen [place], 31 G x 8 mm BD Ultra [...] AM EDT, Route to Pharmacy Electronically, [facility]/pharmacy #[id number], Partial fill upon patient request [...] AM EDT, Route to Pharmacy Electronically, [facility]/pharmacy #0315, Partial fill upon patient request [...] 10:55:00 AM EST, [facility] fill upon patient request [...] PM EDT, Route to Pharmacy Electronically, [facility]/pharmacy #[id number], 179, cm, 08/14/23 10:37:00 EDT, [...] PM EST, Route to Pharmacy Electronically, [facility]/pharmacy #[id number], 178, cm, 04/09/23 13:33:00 EST, Height, 109.6, kg, 04/09/23 13:33:00 EST, Dry Weight Start Date: 02/13/24 Stop Date: 08/11/24 Status: Ordered Quantity: 90.0 Unit: tablet Repeat number: 2 sertraline 100 mg oral tablet 2 tablet = 200 mg, By Mouth, Daily, # 180 tablet, 1 Refills, Maintenance, 08/11/24 4:47:00 PM EDT, [facility]/pharmacy #0315, 179, cm, 08/14/23 10:37:00 EDT, Height, 108.7, kg, 08/14/23 10:37:00 EDT, Dry Weight Start Date: 08/11/24 Stop Date: 02/07/25 Status: Ordered Quantity: 180.0 Unit: tablet Repeat number: 2 sertraline 100 mg oral tablet 2 tablet = 200 mg, By Mouth, Daily, for 90 days, # 180 tablet, 1 Refills, Hard Stop 08/11/24 4:47:00PM EDT, 02/13/24 4:47:00 PM EST, [facility]/pharmacy #[id number], 178, cm, 04/09/23 13:33:00 EST, Height, 109.6,kg, 04/09/23 13:33:00 EST, Dry Weight Start Date: 02/13/24 Stop Date: 08/11/24 Status: Ordered Quantity: 180.0 Unit: tablet Repeat number: 2 Spiriva Respimat 1.25 mcg/inh inhalation aerosol See Instructions, INHALE 2 PUFFS BY MOUTH DAILY, j45.40, # 3 each, 0 Refills, Soft Stop, 12/12/23 10:49:00 AM EDT, [facility]/pharmacy #0315, 179, cm, 08/14/23 10:37:00 EDT, Height, 108.7, kg, 08/14/23 10:37:00 EDT, Dry Weight Start Date: 12/12/23 Status: Ordered Quantity: 3.0 Unit: each Repeat number: 1 tamsulosin 0.4 mg oral capsule 1, capsule, By Mouth, 2 times a day, # 180 capsule, Refills 3, Tot. Refills 3, Maintenance, 10/22/23 10:22:00 AM EDT, Route to Pharmacy Electronically, [facility]/pharmacy #0315, 179, cm, 08/14/23 10:37:00 EDT, [...] Refills, Maintenance, 12/12/23 10:48:00 AM EDT, Aerosol, [facility]/pharmacy #[id number], Partial fill upon patient request [...] Doppler on both LE 4Followed at the [facility] Social History Social History Type Response Smoking Status Former smoker; Tobac co user in household: No entered on: 08/29/16 Sex Sex Representation Male (finding) Patient Care team information Care Team Personnel Name: Adrian Schneider MD Position: [facility] Renal MD Member Role: Lifetime Consulting Physician Address: [address] [place] [address] [address] [place] [address]- [place] Tele[employer]: Name: Maria Dolores Luo RN Position: [facility] RN Member Role: Primary Care Nurse Name: Dewayne Kinsey MD Position: [facility] Cardiology MD Member Role: Lifetime Consulting Physician Address: [address] [place] [address]- [place] Tele[employer]: Name: Jyothi Rangel RN Position: [facility] RN Member Role: Primary Care Nurse Name: Elba Ward RN Position: [facility] Onco RN Member Role: Primary Care Nurse Name: June Manzano MA Position: [facility] Staff Member Role: Primary Care Nurse Name: Not on Staff, PCP Position: [facility] Physician (General Medicine) Member Role: PCP Name: Shell Gray RN Position: [facility] AMB Nurse Member Role: Primary Care Nurse Name: Bharathi Villa MD Position: [facility] Outreach Member Role: Lifetime Consulting Physician Address: [address] [facility] [address] [facility] [address] [facility] [place] [address]- [place] Tele[employer]: Name: Wesly Hernandez MD Position: Reference Physician Member Role: Lifetime Consulting Physician Address: [address] [place] [address]- [place] [employer]: Care Team Related Persons Name: HITESH SNIDER Insurance Providers Guarantor name: DEWAYNE SNIDER Health Plan Information #: 2 Payer: [place] Member Number: [id number] Policy Number: NA Group Number: NA Health Plan Information #: 1 Payer: MEDICARE PART B OUTPT Member Number: [id number] Policy Number: NA Group Number: NA
--- OUTSIDE RECORDS SUMMARY | 2024-03-21 13:29 | XMS_ITS | Continuity of Care Document ---
Author Organization [facility] Address [address] [place] [address]- Care Team Providers Care Acoustical Logging Engineer Name Role Phone Not on Staff, PCP Primary Care Physician Unavail able Encounter [facility] Date(s): 02/06/24 - 03/07/24 [facility] [address], [place] [address] Attending Physician: AdmWilfredo rincon Admitting Physician: AdmtrWilfredo Referring Physician: Admtr ArCierra Encounter Type: Triage Allergies, Adverse Reactions, Alerts [...] received the 3rd booster Moderna Vaccine at [facility] 2Result Comment: [facility] in [place] administered the Influenza vaccine 3Result Comment: [facility] [id number] 4Admin Note: Patient states he received flu vaccine from [facility] 5Result Comment: [id number] 6Admin Note: [facility] 7Admin Note: [facility] 8Admin Note: [facility] 9Location History: [facility] 10Location History: [facility] 11Admin Note: [facility] Medications acetaminophen/butalbital/caffeine/codeine 300 mg-50 mg-40 mg-30 mg oral capsule 1 capsule, By Mouth, Daily, PRN Pain , Moderate, DISPENSE AMOUNT DECREASED PER PT REQUEST 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, # 18 capsule, 0 Refills, Soft Stop, 12/09/20 4:00:00 PM EDT, [facility] #[id number], DISPENSE AMOUNT DECREASED PER PT REQUEST, 1 capsule By Mouth Daily,PRN:Pain , Moderate,Instr:DISPENSE AMOUNT DECREASED PER PT REQUEST; 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/pharmacy #[id number], Partial fill upon patient request if the [...] 10/23/22 2:16:00 PM EDT, Solution, [facility]/pharmacy #0315, 3 mL Inhalation 4 times a day,Instr:j45.40, 176, cm, 09/22/22 11:27:00 EDT, Height, 104.5, kg, 07/03/22 13:29:00 EDT, Dry Weight Start Date: 10/23/22 Status: Ordered Quantity: 360.0 Unit: mL Repeat number: 4 allopurinol 100 mg oral tablet 1, tablet, By Mouth, Daily, # 90 tablet, Refills 1, Tot. Refills 1, Maintenance, 10/05/22 5:49:00 PMEDT, Route to Pharmacy Electronically, [facility]/pharmacy #[id number], 176, cm, 09/22/22 11:27:00 [...] 0 Refills, Maintenance, 12/12/23 10:50:00 AM EDT, [facility]/pharmacy#0315, 1 puffs Inhalation Daily, 179, cm, 08/14/23 10:37:00 EDT, Height, 108.7, kg, 08/14/23 10:37:00 EDT, Dry Weight Start Date: 12/12/23 Status: Ordered Quantity: 3.0 Unit: each Repeat number: 1 clonazePAM 1 mg oral tablet 1 tablet = 1 mg, By Mouth, 2 times a day, Fill when it's due, # 180 tablet, 1 Refills, Maintenance,09/19/23 7:56:00 AM EDT, Tablet, [facility]/pharmacy #0315, 179, cm, 08/14/23 10:37:00 EDT, Height, 108.7, kg, 08/14/23 10:37:00 EDT, Dry Weight Start Date: 09/19/23 Status: Ordered Quantity: 180.0 Unit: tablet Repeat number: 2 Crestor 40 mg oral tablet 1 tablet = 40 mg, By Mouth, Daily, BRAND NAME ONLY, # 90 tablet, 3 Refills, Maintenance, 02/09/20 10:28:00 AM EST, Tablet, [facility] #[id number], 183, cm, 11/20/19 10:39:00 EDT, Height, 98.5, kg, 11/19/19 13:59:00 EDT, Dry Weight Start Date: 02/09/20 Stop Date: 02/03/21 Status: Ordered Quantity: 90.0 Unit: tablet Repeat number: 4 EpiPen 2-Bronson 0.3 mg injectable kit See Instructions, PRN Anaphylactic Reaction, Intramuscular Once may repeat if necessary, # 2 each, 1 Refills, Soft Stop, 04/27/20 2:34:00 PM EST, [facility] #[id number], 183, cm, 11/20/19 10:39:00EDT, Height, 98.5, kg, 11/19/19 13:59:00 EDT, Dry Weight Start Date: 04/27/20 Status: Ordered Quantity: 2.0 Unit: each Repeat number: 2 Flonase 50 mcg/inh nasal spray 1 sprays, Nares, Both, 2 times a day, in each nostril as directed, j45.40, # 3 each, 1 Refills, Maintenance, 05/15/22 10:55:00 AM EST, [place], [facility] #21125, J45.909, 1 sprays Nares, Both2 times a [...] 3 Refills, Maintenance, 05/28/23 11:22:00 AM EDT, [place], [facility]/pharmacy #0315, Partial fill upon patient [...] Refills, Soft Stop, 07/07/20 6:16:00 AM EDT, [facility] #[id number], 4 pens, 175.9, cm, 06/17/2111:57:00 EDT, Height, [...] Refills, Soft Stop, 09/01/20 2:32:00 PM EDT, [facility] #97662, 175.9, cm, 06/16/20 12:57:00 EDT, Height, 98.5, kg, 11/19/19 13:59:00 EDT, Dry Weight Start Date: 09/01/20 Status: Ordered Quantity: 270.0 Unit: tablet Repeat number: 2 metFORMIN 1000 mg oral tablet 1 tablet = 1,000 mg, By Mouth, 2 times a day, # 180 tablet, 2 Refills, Maintenance, 09/24/20 10:29:00AM EDT, Tablet, [facility] #85224, 175.9, cm, 06/16/20 12:57:00 EDT, Height, 98.5, kg, 11/19/19 13:59:00 EDT, Dry Weight Start Date: 09/24/20 Stop Date: 06/21/21 Status: Ordered Quantity: 180.0 Unit: tablet Repeat number: 3 montelukast 10 mg oral tablet 10 mg, 1, tablet, By Mouth, Daily, j45.40, # 90 tablet, Refills 0, Tot. Refills 0, Maintenance, 12/12/23 10:48:00 AM EDT, Route to Pharmacy Electronically, [facility]/pharmacy #[id number], Partial fill upon patient request if the [...] 11 Refills, Maintenance, 06/21/23 4:20:00 PM EDT, [facility], 178, cm, 04/09/23 13:33:00 EST, Height, 109.6, kg, 04/09/23 13:33:00 EST, Dry Weight Start Date: 06/21/23 Status: Ordered Quantity: 1.0 Unit: mL Repeat number: 1 Nucala Prefilled Autoinjector 100 mg/mL subcutaneous solution See Instructions, INJECT 100MG SUBCUTANEOUSLY EVERY 28 DAYS, # 1 mL, 2 Refills, Maintenance, 01/09/23 3:34:00 PM EDT, [facility], 176, cm, 12/05/22 7:16:00 EDT, Height, 104.5, kg, 07/03/22 13:29:00 EDT, Dry Weight Start Date: 01/09/23 Status: Ordered Quantity: 1.0 Unit: mL Repeat number: 1 NuLYTELY Lemon [place] oral powder for reconstitution See Instructions, By Mouth. as directed before colonoscopy, # 1 each, 0 Refills, Maintenance, 05/04/23 9:37:00 AM EST, [facility]/pharmacy #0315, Partial fill upon patient [...] Refills, Maintenance, 10/31/22 11:51:00 AM EDT,[facility], 176, cm, 09/22/22 11:27:00 EDT, Height, 104.5, [...] 09/22/22 Status: Ordered Repeat number: 1 Pen [place], 31 G x 8 mm BD Ultra [...] EDT, Route to Pharmacy Electronically, [facility]/pharmacy #[id number], Partial fill upon patient [...] EDT, Route to Pharmacy Electronically, [facility]/pharmacy #0315, Partial fill upon patient [...] 10:55:00 AM EST, [facility] fill upon patient request if [...] 4:47:00 PM EDT, [facility] 179, cm, 08/14/23 10:37:00 EDT, Height, [...] EST, Route to Pharmacy Electronically, [facility]/pharmacy #0315, 178, cm, 04/09/23 13:33:00 EST, Height, 109.6, kg, 04/09/23 13:33:00 EST, Dry Weight Start Date: 02/13/24 Stop Date: 08/11/24 Status: Ordered Quantity: 90.0 Unit: tablet Repeat number: 2 sertraline 100 mg oral tablet 2 tablet = 200 mg, By Mouth, Daily, # 180 tablet, 1 Refills, Maintenance, 08/11/24 4:47:00 PM EDT, [facility]/pharmacy #0315, 179, cm, 08/14/23 10:37:00 EDT, Height, 108.7, kg, 08/14/23 10:37:00 EDT, Dry Weight Start Date: 08/11/24 Stop Date: 02/07/25 Status: Ordered Quantity: 180.0 Unit: tablet Repeat number: 2 sertraline 100 mg oral tablet 2 tablet = 200 mg, By Mouth, Daily, for 90 days, # 180 tablet, 1 Refills, Hard Stop 08/11/24 4:47:00PM EDT, 02/13/24 4:47:00 PM EST, [facility]/pharmacy #0315, 178, cm, 04/09/23 13:33:00 EST, Height, 109.6,kg, 04/09/23 13:33:00 EST, Dry Weight Start Date: 02/13/24 Stop Date: 08/11/24 Status: Ordered Quantity: 180.0 Unit: tablet Repeat number: 2 Spiriva Respimat 1.25 mcg/inh inhalation aerosol See Instructions, INHALE 2 PUFFS BY MOUTH DAILY, j45.40, # 3 each, 0 Refills, Soft Stop, 12/12/23 10:49:00 AM EDT, [facility]/pharmacy #0315, 179, cm, 08/14/23 10:37:00 EDT, Height, 108.7, kg, 08/14/23 10:37:00 EDT, Dry Weight Start Date: 12/12/23 Status: Ordered Quantity: 3.0 Unit: each Repeat number: 1 tamsulosin 0.4 mg oral capsule 1, capsule, By Mouth, 2 times a day, # 180 capsule, Refills 3, Tot. Refills 3, Maintenance, 10/22/23 10:22:00 AM EDT, Route to Pharmacy Electronically, [facility]/pharmacy #[id number], 179, cm, 08/14/23 10:37:00 [...] on both LE 4Followed at the [facility], Zachary Elio Social History Social History Type Response Smoking Status Former smoker; Tobac co user in household: No entered on: 08/29/16 Sex Sex Representation Male (finding) Patient Care team information Care Team Personnel Name: Jennie SILVERMAN, Adrian Luevano Position: [facility] Renal MD Member Role: Lifetime Consulting Physician Address: [address] [place] [address] [address] [place] [address]- [place] Tele[employer]: Name: Maria Dolores Luo RN Position: [facility] RN Member Role: Primary Care Nurse Name: Dewayne Kinsey MD Position: [facility] Cardiology MD Member Role: Lifetime Consulting Physician Address: [address] [facility] [address] [place] [address]- [place] Tele[employer]: Name: Jyothi Rangel RN Position: [facility] RN Member Role: Primary Care Nurse Name: Ed LEE, Elba Hutchins Position: [facility] Onco RN Member Role: Primary Care Nurse Name: June Manzano MA Position: [facility] Staff Member Role: Primary Care Nurse Name: Not on Staff, PCP Position: [facility] Physician (General Medicine) Member Role: PCP Name: Shell Gray RN Position: [facility] AMB Nurse Member Role: Primary Care Nurse Name: Bharathi Villa MD Position: [facility] Outreach Member Role: Lifetime Consulting Physician Address: [address] [facility] [address] [facility] [place] [address]- [place] Tele[employer]: Name: Wesly Hernandez MD Position: Reference Physician Member Role: Lifetime Consulting Physician Address: [address] [place] [address]- [place] [employer]: Care Team Related Persons Name: HITESH SNIDER Insurance Providers Guarantor name: DEWAYNE SNIDER Health Plan Information #: 1 Payer: MEDICARE PART B OUTPT Member Number: NA Policy Number: NA Group Number: NA Health Plan Information #: 2 [facility] Member Number: NA Policy Number: NA Group Number: NA
--- OUTSIDE RECORDS SUMMARY | 2024-03-21 13:29 | XMS_ITS | Continuity of Care Document ---
Author Organization [facility] Address [address] [place] [address]- Care Team Providers Care Benefits Sales Consultant Name Role Phone Not on Staff, PCP Primary Care Physician Unavail able Encounter [facility] Date(s): 01/18/24 - 03/07/24 [facility] [address] [place], [place] [address] Attending Physician: Charbel Schwartz MD Admitting Physician: Charbel Schwartz MD Referring Physician: Not on Staff, Referring MD Encounter Type: Pre Office Visit Allergies, Adverse Reactions, Alerts Substance Criticality Severity [...] 3rd booster Moderna Vaccine at [facility] 2Result Comment: [facility] in [place] administered the Influenza vaccine 3Result Comment: [facility] [id number] 4Admin Note: Patient states he received flu vaccine from [facility] 5Result Comment: [id number] 6Admin Note: [facility] 7Admin Note: [facility] 8Admin Note: [facility] 9Location History: [facility] 10Location History: [facility] 11Admin Note: [facility] Medications acetaminophen/butalbital/caffeine/codeine 300 mg-50 mg-40 mg-30 mg oral capsule 1 capsule, By Mouth, Daily, PRN Pain , Moderate, DISPENSE AMOUNT DECREASED PER PT REQUEST PSYCHOMETRICIAN CHECKED, # 18 capsule, 0 Refills, Soft Stop, 12/09/20 4:00:00 PM EDT, [facility] #[id number], DISPENSE AMOUNT DECREASED PER PT REQUEST, 1 capsule By Mouth Daily,PRN:Pain , Moderate,Instr:DISPENSE AMOUNT DECREASED PER PT REQUEST; PSYCHOMETRICIAN CHECKED,The Maximum Daily Dose is 1 capsule, 175.9, cm, 11/10/20 10:49:00 EDT, Height, 98.5, kg, 11/19/19 13:59:00 EDT, Dry Weight, 1, capsule Start Date: 12/09/20 Status: Ordered Quantity: 18.0 Unit: capsule Repeat number: 1 Albuterol (Eqv-Ventolin HFA) 90 mcg/inh inhalation aerosol 2 puffs, Inhalation, Every 6 hours, j44.9, # 3 each, 3 Refills, Maintenance, 12/12/23 11:53:00 AM EDT, [facility]/pharmacy #[id number], Partial fill upon patient request if the [...] Refills, Maintenance, 10/23/22 2:16:00 PM EDT, Solution, [facility]/pharmacy #[id number], 3 mL Inhalation 4 times a day,Instr:j45.40, 176, cm, 09/22/22 11:27:00 EDT, Height, 104.5, kg, 07/03/22 13:29:00 EDT, Dry Weight Start Date: 10/23/22 Status: Ordered Quantity: 360.0 Unit: mL Repeat number: 4 allopurinol 100 mg oral tablet 1, tablet, By Mouth, Daily, # 90 tablet, Refills 1, Tot. Refills 1, Maintenance, 10/05/22 5:49:00 PMEDT, Route to Pharmacy Electronically, [facility]/pharmacy #[id number], 176, cm, 09/22/22 11:27:00 EDT, Height, [...] 1 Refills, Maintenance,09/19/23 7:56:00 AM EDT, Tablet, [facility]/pharmacy #[id number], 179, cm, 08/14/23 10:37:00 EDT, Height, 108.7, kg, 08/14/23 10:37:00 EDT, Dry Weight Start Date: 09/19/23 Status: Ordered Quantity: 180.0 Unit: tablet Repeat number: 2 Crestor 40 mg oral tablet 1 tablet = 40 mg, By Mouth, Daily, BRAND NAME ONLY, # 90 tablet, 3 Refills, Maintenance, 02/09/20 10:28:00 AM EST, Tablet, [facility] #[id number], 183, cm, 11/20/19 10:39:00 EDT, Height, 98.5, kg, 11/19/19 13:59:00 EDT, Dry Weight Start Date: 02/09/20 Stop Date: 02/03/21 Status: Ordered Quantity: 90.0 Unit: tablet Repeat number: 4 EpiPen 2-Bronson 0.3 mg injectable kit See Instructions, PRN Anaphylactic Reaction, Intramuscular Once may repeat if necessary, # 2 each, 1 Refills, Soft Stop, 04/27/20 2:34:00 PM EST, [facility] #[id number], 183, cm, 11/20/19 10:39:00EDT, Height, 98.5, kg, 11/19/19 13:59:00 EDT, Dry Weight Start Date: 04/27/20 Status: Ordered Quantity: 2.0 Unit: each Repeat number: 2 Flonase 50 mcg/inh nasal spray 1 sprays, Nares, Both, 2 times a day, in each nostril as directed, j45.40, # 3 each, 1 Refills, Maintenance, 05/15/22 10:55:00 AM EST, [place], [facility] #[id number], J45.909, 1 sprays Nares, Both2 times a [...] 3 Refills, Maintenance, 05/28/23 11:22:00 AM EDT, [place], [facility]/pharmacy #[id number], Partial fill upon patient request if [...] Refills, Soft Stop, 07/07/20 6:16:00 AM EDT, [facility] #[id number], 4 pens, 175.9, cm, 06/17/2111:57:00 EDT, Height, [...] Refills, Soft Stop, 09/01/20 2:32:00 PM EDT, [facility][id number], 175.9, cm, 06/16/20 12:57:00 EDT, Height, 98.5, kg, 11/19/19 13:59:00 EDT, Dry Weight Start Date: 09/01/20 Status: Ordered Quantity: 270.0 Unit: tablet Repeat number: 2 metFORMIN 1000 mg oral tablet 1 tablet = 1,000 mg, By Mouth, 2 times a day, # 180 tablet, 2 Refills, Maintenance, 09/24/20 10:29:00AM EDT, Tablet, [facility] #[id number], 175.9, cm, 06/16/20 12:57:00 EDT, Height, 98.5, kg, 11/19/19 13:59:00 EDT, Dry Weight Start Date: 09/24/20 Stop Date: 06/21/21 Status: Ordered Quantity: 180.0 Unit: tablet Repeat number: 3 montelukast 10 mg oral tablet 10 mg, 1, tablet, By Mouth, Daily, j45.40, # 90 tablet, Refills 0, Tot. Refills 0, Maintenance, 12/12/23 10:48:00 AM EDT, Route to Pharmacy Electronically, [facility]/pharmacy #[id number], Partial fill upon patient request if the [...] 11 Refills, Maintenance, 06/21/23 4:20:00 PM EDT, [facility], 178, cm, 04/09/23 13:33:00 EST, Height, 109.6, kg, 04/09/23 13:33:00 EST, Dry Weight Start Date: 06/21/23 Status: Ordered Quantity: 1.0 Unit: mL Repeat number: 1 Nucala Prefilled Autoinjector 100 mg/mL subcutaneous solution See Instructions, INJECT 100MG SUBCUTANEOUSLY EVERY 28 DAYS, # 1 mL, 2 Refills, Maintenance, 01/09/23 3:34:00 PM EDT, [facility], 176, cm, 12/05/22 7:16:00 EDT, Height, 104.5, kg, 07/03/22 13:29:00 EDT, Dry Weight Start Date: 01/09/23 Status: Ordered Quantity: 1.0 Unit: mL Repeat number: 1 NuLYTELY Lemon [place] oral powder for reconstitution See Instructions, By Mouth. as directed before colonoscopy, # 1 each, 0 Refills, Maintenance, 05/04/23 9:37:00 AM EST, [facility]/pharmacy #[id number], Partial fill upon patient request if [...] capsule, 1 Refills, Maintenance, 10/31/22 11:51:00 AM EDT,[id number], 176, cm, 09/22/22 11:27:00 EDT, Height, 104.5, [...] 09/22/22 Status: Ordered Repeat number: 1 Pen [place], 31 G x 8 mm BD Ultra [...] 10:55:00 AM EDT, Route to Pharmacy Electronically, [facility]/pharmacy #[id number], Partial fill upon patient request if [...] 10:55:00 AM EDT, Route to Pharmacy Electronically, [facility]/pharmacy #[id number], Partial fill upon patient request if [...] 10:55:00 AM EST, [id number], Partial fill upon patient request if [...] 4:47:00 PM EDT, [id number], 179, cm, 08/14/23 10:37:00 EDT, Height, [...] 4:47:00 PM EST, Route to Pharmacy Electronically, [facility]/pharmacy #[id number], 178, cm, 04/09/23 13:33:00 EST, Height, 109.6, kg, 04/09/23 13:33:00 EST, Dry Weight Start Date: 02/13/24 Stop Date: 08/11/24 Status: Ordered Quantity: 90.0 Unit: tablet Repeat number: 2 sertraline 100 mg oral tablet 2 tablet = 200 mg, By Mouth, Daily, # 180 tablet, 1 Refills, Maintenance, 08/11/24 4:47:00 PM EDT, [facility]/pharmacy #[id number], 179, cm, 08/14/23 10:37:00 EDT, Height, 108.7, kg, 08/14/23 10:37:00 EDT, Dry Weight Start Date: 08/11/24 Stop Date: 02/07/25 Status: Ordered Quantity: 180.0 Unit: tablet Repeat number: 2 sertraline 100 mg oral tablet 2 tablet = 200 mg, By Mouth, Daily, for 90 days, # 180 tablet, 1 Refills, Hard Stop 08/11/24 4:47:00PM EDT, 02/13/24 4:47:00 PM EST, [facility]/pharmacy #[id number], 178, cm, 04/09/23 13:33:00 EST, Height, 109.6,kg, 04/09/23 13:33:00 EST, Dry Weight Start Date: 02/13/24 Stop Date: 08/11/24 Status: Ordered Quantity: 180.0 Unit: tablet Repeat number: 2 Spiriva Respimat 1.25 mcg/inh inhalation aerosol See Instructions, INHALE 2 PUFFS BY MOUTH DAILY, j45.40, # 3 each, 0 Refills, Soft Stop, 12/12/23 10:49:00 AM EDT, [facility]/pharm[facility] #[id number], 179, cm, 08/14/23 10:37:00 EDT, Height, 108.7, kg, 08/14/23 10:37:00 EDT, Dry Weight Start Date: 12/12/23 Status: Ordered Quantity: 3.0 Unit: each Repeat number: 1 tamsulosin 0.4 mg oral capsule 1, capsule, By Mouth, 2 times a day, # 180 capsule, Refills 3, Tot. Refills 3, Maintenance, 10/22/23 10:22:00 AM EDT, Route to Pharmacy Electronically, [facility]/pharmacy #[id number], 179, cm, 08/14/23 10:37:00 EDT, Height, [...] on both LE 4Followed at the [facility], [facility] Social History Social History Type Response Smoking Status Former smoker; Tobac co user in household: No entered on: 08/29/16 Sex Sex Representation Male (finding) Patient Care team information Care Team Personnel Name: Jennie SILVERMAN, Adrian Luevano Position: [facility] Renal MD Member Role: Lifetime Consulting Physician Address: [address] [place] [address] [id number] [place] [address]- [place] [employer]: Name: Maria Dolores Luo RN Position: [facility] RN Member Role: Primary Care Nurse Name: Dewayne Kinsey MD Position: [facility] Cardiology MD Member Role: Lifetime Consulting Physician Address: [address] [place] [address]- [place] [employer]: Name: Jyothi Rangel RN Position: [facility] RN Member Role: Primary Care Nurse Name: Ed LEE, Elba Hutchins Position: [facility] Onco RN Member Role: Primary Care Nurse Name: June Manzano MA Position: [facility] Office Staff Member Role: Primary Care Nurse Name: Not on Staff, PCP Position: [facility] Physician (General Medicine) Member Role: PCP Name: Shell Gray RN Position: [facility] AMB Nurse Member Role: Primary Care Nurse Name: Bharathi Villa MD Position: [facility] Outreach Member Role: Lifetime Consulting Physician Address: [address] [facility] [place] [address]- [place] [employer]: Name: Wesly Hernandez MD Position: Reference Physician Member Role: Lifetime Consulting Physician Address: [address] [place] [address]- [place] [employer]: Care Team Related Persons Name: HITESH SNIDER Insurance Providers Guarantor name: DEWAYNE SNIDER Health Plan Information #: 1 Payer: MEDICARE PART B OUTPT Member Number: [id number] Policy Number: NA Group Number: NA Health Plan Information #: 2 [facility] Member Number: [id number] Policy Number: NA Group Number: [id number]
== END 2024-03-21 12:25 | disposition home or self-care (01) ==
PROVIDERS: Visit Provider Internal Medicine Nephrology
DX: I70.1 Atherosclerosis of renal artery (principal); I12.9 Hypertensive chronic kidney disease with stage 1 through stage 4 chronic kidney disease, or unspecified chronic kidney disease; N18.2 Chronic kidney disease, stage 2 (mild)
CPT/HCPCS: 99214

== ENCOUNTER → 2024-03-21 11:42 | Outpatient (BNVA) | payer MEDICARE, MEDICAID, SELFPAY | PROVIDERS: Visit Provider Internal Medicine Nephrology | DX: I12.9 Hypertensive chronic kidney disease with stage 1 through stage 4 chronic kidney disease, or unspecified chronic kidney disease (principal); N18.2 Chronic kidney disease, stage 2 (mild); I70.1 Atherosclerosis of renal artery | CPT/HCPCS: 99212 ==

== ENCOUNTER 2024-04-02 09:48 | Outpatient (REF) | payer MEDICARE, MEDICAID, SELFPAY ==
--- NOTE | ~2024-04-02 | US_ITS ---
EXAMINATION: US RETROPERITONEAL LIMITED (RENAL ONLY) CLINICAL INFORMATION: Atherosclerosis of renal artery. Uncontrolled hypertension, CKD type II. COMPARISON: None available. TECHNIQUE: Ultrasound along with color Doppler imaging and spectral analysis was performed of the kidneys. FINDINGS: RIGHT KIDNEY: 14.0 x 5.0 x 6.4 cm (SAG x AP x TRV). The kidney is normal in size and contour. Mild diffuse renal cortical thinning and increased echogenicity. No calculi or suspicious focal parenchymal lesions. No hydronephrosis. There is a simple upper pole cyst measuring 1.0 cm. LEFT KIDNEY: 13.3 x 5.7 x 6.5 cm (SAG x AP x TRV). The kidney is normal in size and contour. Mild diffuse renal cortical thinning and increased echogenicity. No calculi or suspicious focal parenchymal lesions. No hydronephrosis. There is a mid pole cyst with fine internal septations measuring 2.0 x 1.1 x 1.7 cm. Spectral Doppler analysis: Right kidney: -Peak systolic velocity in the proximal right renal artery = 134 cm/s, with resistive index of 0.74. -Peak systolic velocity in the mid right renal artery = 232 cm/s, with resistive index of 0.74. -Peak systolic velocity in the distal right renal artery = 138 cm/s, with resistive index of 0.73. -Patent right renal vein. Left kidney: -Peak systolic velocity in the proximal left renal artery = 289 cm/s, with resistive index of 0.76. -Peak systolic velocity in the mid left renal artery = 244 cm/s, with resistive index of 0.72. -Peak systolic velocity in the distal left renal artery = 156 cm/s, with resistive index of 0.73. -Patent left renal vein. Aorta: -Peak systolic velocity = 99 cm/s. US/US renal doppler IMPRESSION: 1. Mildly elevated peak systolic velocities of both renal arteries, with normal resistive indices, suggestive of a 60% or less stenosis bilaterally. There is no high-grade stenosis based on velocity criteria. 2. Patent renal veins bilaterally. 3. Mildly increased parenchymal echogenicity both kidneys with mild cortical thinning. Right renal simple cyst upper pole measuring 1.0 cm. Left renal midpole cyst fine internal septations but no suspicious features measuring 2.0 cm. (This would be equivalent to a Bosniak 2 cyst). 4. No calculi or hydronephrosis. Electronically signed by: Gerry Choudhary MD 04/02/2024 11:06 AM TI
[2024-04-02 13:25] LABS: Albumin Level 4.2 g/dL (3.5-5.0); Anion Gap 13 (12-20); Blood Urea Nitrogen 20 mg/dL (9-16); Carbon Dioxide 24 mmol/L (22-29); Chloride 107 mmol/L (96-108); Estimated Glomerular Filt Rate > 60; Potassium 4.5 mmol/L (3.3-5.1); Sodium 139 mmol/L (135-145)
[2024-04-02 13:41] LABS: Creatinine Urine 146.86 mg/dL; Protein/Creatinine Ratio, Ur 0.37 (<0.2); Total Protein Urine Random 54 mg/dL (<12)
== END 2024-04-02 09:49 | disposition home or self-care (01) ==
LOC: HO.HMGCX 09:48
PROVIDERS: Visit Provider Internal Medicine Nephrology
DX: I70.1 Atherosclerosis of renal artery (principal); I12.9 Hypertensive chronic kidney disease with stage 1 through stage 4 chronic kidney disease, or unspecified chronic kidney disease; N18.9 Chronic kidney disease, unspecified
CPT/HCPCS: 36415; 76775; 80051; 82040; 82565; 82570; 84156; 84520; 93975

== ENCOUNTER → 2024-04-02 09:50 | Outpatient (BNV) | payer MEDICARE, MEDICAID, SELFPAY | PROVIDERS: Visit Provider Radiology Diagnostic Radiology | DX: I70.1 Atherosclerosis of renal artery (principal); I12.9 Hypertensive chronic kidney disease with stage 1 through stage 4 chronic kidney disease, or unspecified chronic kidney disease; N18.2 Chronic kidney disease, stage 2 (mild) | CPT/HCPCS: 76775; 93975 ==

== ENCOUNTER 2024-04-04 15:46 | Outpatient (AMB) | payer MEDICARE, MEDICAID, SELFPAY ==
--- NOTE | 2024-04-04 15:48 | HO.NEPHOV_ITS ---
Vital Signs 04/04/24 15:50 Height 5 ft 9 in Weight 238 lb 9 oz BMI 35.2 BP 150/70 H Blood Pressure Location Lt brachial Position Sitting Pulse 65 Pulse Source Pulse Oximeter Pulse Oximetry (%) 96 Oxygen Delivery Method Room Air Intake Visit Reasons: Pt req appt-Conf Lead Section Supervisor Required: No Accompanied by: Self / Same As Patient Allergies No Known Allergies Allergy (Verified 04/04/24 15:50) Medication List - Last Reconciled 04/04/24 by Adrian Schneider MD albuterol sulfate 90 mcg/actuation (Ventolin HFA) 2 puffs inhalation Q4-6H PRN allopurinol 100 mg PO DAILY amlodipine 5 mg PO DAILY aspirin 81 mg PO DAILY eodqdjwqrc-jwnzdwadoc-win-cod [id number] mg caps PO carvedilol 12.5 mg PO BID clonazepam 1 mg PO BID PRN epinephrine IM famotidine 20 mg PO BID fluticasone furoate-vilanterol 200-25 mcg/dose (Breo Ellipta) 1 ea inhalation DAILY fluticasone propionate 50 mcg/actuation sprays intranasal hydrochlorothiazide 12.5 mg PO DAILY insulin lispro (Humalog KwikPen (U-100) Insulin) subcut ipratropium-albuterol 0.5 mg-3 mg(2.5 mg base)/3 mL mL inhalation mepolizumab (Nucala) mg subcut metaxalone 800 mg PO TID metformin 1,000 mg PO BID montelukast 10 mg PO DAILY omeprazole 20 mg PO BID ondansetron HCl 4 mg PO Q8H oxycodone 5 mg PO QID PRN prazosin 3 mg PO BEDTIME quetiapine ER 200 mg PO BEDTIME rosuvastatin (Crestor) 40 mg PO DAILY sertraline 100 mg PO BID tamsulosin 0.8 mg PO DAILY tiotropium bromide 1.25 mcg/actuation (Spiriva Respimat) 2 puffs inhalation DAILY valsartan 160 mg PO DAILY valsartan 40 mg PO DAILY 90 days zolpidem 10 mg PO BEDTIME PRN HPI Comments Details: I had the opportunity to see Florencio in follow up for uncontrolled hypertension an d follow up of his recent serum creatinine going up to 1.9. His serum creatinine had gone up to 1.9 on HCTZ. 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 He underwent cardiac catheterization after his serum creatinine improved . 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 His follow up serum creatinine has been stable but his BP control has been quite poor. He is on ARB as well as carvedi lol. He denied any chest pain, SOB, edema, PND, orthopnea, NSAID intake. He is unsure about proteinuria 04/04/24 Amlodipine decreased to 5 mg by Cardiology and increased coreg to 12.5 mg BID Tolerating Valsartan BP is sub optimal [facility] Social History Alcohol intake: former Patient Tobacco Use Status: Former Tobacco user Physical Exam Vital Signs: Last Vital Signs Pulse 65 04/04/24 15:50 BP 150/70 H 04/04/24 15:50 Pulse Ox 96 04/04/24 15:50 Oxygen Delivery Method Room Air 04/04/24 15:50 BMI result Body Mass Index 35.2 Results Reviewed Nephrology Results: Sodium 139 mmol/L (135-145) 04/02/24 Potassium 4.5 mmol/L (3.3-5.1) 04/02/24 Chloride 107 mmol/L (96-108) 04/02/24 Carbon Dioxide 24 mmol/L (22-29) 04/02/24 BUN 20 mg/dL (9-16) H 04/02/24 Creatinine 1.11 mg/dL (0.5-1.4) 04/02/24 Urine Creatinine 146.86 mg/dL 04/02/24 Protein/Creatinin Ratio 0.37 (<0.2) H 04/02/24 Renal US 04/02/24 Assessment & Plan Assessment & Plan (1) Renal artery stenosis: Code(s): I70.1 - Atherosclerosis of renal artery Category: Medical (2) CKD (chronic kidney disease) stage 2, GFR 60-89 ml/min: Code(s): N18.2 - Chronic kidney disease, stage 2 (mild) Category: Medical (3) Hypertension: Code(s): I10 - Essential (primary) hypertension Category: Medical Qualifiers: Hypertension type: primary hypertension Qualified Code(s): I10 - Essential (primary) hypertension Plan 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 His BP is uncontrolled. He has diabetic nephropathy. He needs to loose weight and keep his blood sugar at goal. His serum creatinine is close to baseline. I increased his valsartan by 40 mg daily ( already on 160 mg daily). I shall maximize his ARB with time and add Jardiance. He avoids NSAID's. I ordered a Doppler of his renal arteries. F/U given 04/04/24 BP is sub optimal but better controlled Creatinine is down to 1.19 Doppler shows < 60% stenosis of CLEMENT Ideally I would manage his BP with medications Can increase Valsartan He believes , his back pain is due to CLEMENT and hence wants an angiogram. I have explained that his back pain is not related to CLEMENT. He wants an angiogram . Risks and benefits explained. At his request, I would refer him to IR for angiogram. Orders: Orders IR radiologist consult Today I70.1 - Atherosclerosis of renal artery Coding Level of Care Code Est Pt Level 5 (85977) Diagnoses Renal artery stenosis I70.1 CKD (chronic kidney disease) stage 2, GFR 60-89 ml/min N18.2 Primary hypertension I10 Hypertension type: primary hypertension
[2024-04-04 15:50] VITALS: BP 150/70; PULSE 65; O2SAT 96; BMI 35.2
== END 2024-04-04 16:30 | disposition home or self-care (01) ==
PROVIDERS: Visit Provider Internal Medicine Hypertension Specialist
DX: I70.1 Atherosclerosis of renal artery (principal); I12.9 Hypertensive chronic kidney disease with stage 1 through stage 4 chronic kidney disease, or unspecified chronic kidney disease; N18.2 Chronic kidney disease, stage 2 (mild)
CPT/HCPCS: 99215

== ENCOUNTER → 2024-04-04 15:46 | Outpatient (BNVA) | payer MEDICARE, MEDICAID, SELFPAY | PROVIDERS: Visit Provider Internal Medicine Hypertension Specialist | DX: I12.9 Hypertensive chronic kidney disease with stage 1 through stage 4 chronic kidney disease, or unspecified chronic kidney disease (principal); N18.2 Chronic kidney disease, stage 2 (mild); I70.1 Atherosclerosis of renal artery | CPT/HCPCS: 99212 ==